=== PATIENT | female | born 1960 | race Caucasian/White ===

== ENCOUNTER 2019-07-03 10:34 | Inpatient (IN) | payer MEDICARE, OTHER ==
[~2019-07-03] VITALS: Ht 157.5 cm; Wt 59.0 kg
[~2019-07-03 10:34] MED LIST: ALPR1 PO; CYCL10 PO; HYDACE5325 PO; HYDR1TAB94 PO; Lyrica25 MG PO; META800 PO; NAPR500 PO; OXYACE5T PO
[2019-07-03] MEDS ORDERED: ALPRAZOLAM0.5 M1 PO (11:12)
[2019-07-03] MEDS ORDERED: DICL75ER PO (11:13)
[2019-07-03] MEDS ORDERED: PREGABALIN50 MG PO (11:13)
[2019-07-03] MEDS ORDERED: Ventolin/Prove6.7 GM INH (11:13)
[2019-07-03] MEDS ORDERED: Carbidopa-Levo1 EAC1 PO (11:13)
[2019-07-03] MEDS ORDERED: METOPROLOL TART25 MG PO (11:14)
[2019-07-03 13:38] LABS: BASOPHILS ABSOLUTE AUTO 0.02 K/mm3 (0.00-0.23); BASOPHILS PERCENT AUTO 0 % (0-2); EOSINOPHILS ABSOLUTE AUTO 0.07 K/mm3 (0.00-0.68); EOSINOPHILS PERCENT AUTO 1 % (0-6); Hematocrit 40.4 % (33.0-51.0); Hemoglobin 12.6 g/dL (11.5-16.0); IMMATURE GRAN ABSOLUTE AUTO 0.02 K/mm3 (0.00-0.10); IMMATURE GRAN PERCENT AUTO 0 % (0-1); LYMPHOCYTES ABSOLUTE AUTO 2.45 K/mm3 (0.84-5.20); LYMPHOCYTES PERCENT AUTO 25 % (21-46); MONOCYTES ABSOLUTE AUTO 0.88 K/mm3 (0.16-1.47); MONOCYTES PERCENT AUTO 9 % (4-13); Mean Corpuscular HGB 26.9 pg (26.0-34.0); Mean Corpuscular HGB Conc 31.2 g/dL (31.5-36.5); Mean Corpuscular Volume 86 fL (80-100); Mean Platelet Volume 10.2 fL (9.1-12.4); NEUTROPHILS ABSOLUTE AUTO 6.48 K/mm3 (1.96-9.15); NEUTROPHILS PERCENT AUTO 65 % (41-73); Platelet Count 221 K/mm3 (150-400); RDW Standard Deviation 47.4 fL (35.1-46.3); Red Blood Cell Count 4.69 M/mm3 (3.80-5.20); White Blood Cell Count 9.92 K/mm3 (4.00-11.30)
[2019-07-03 14:02] LABS: Alanine Aminotransfer (ALT/SGP 73 U/L (12-78); Albumin, Blood 3.4 g/dL (3.4-5.0); Albumin/Globulin Ratio 0.9 (0.8-1.8); Alk Phos 75 U/L (50-136); Anion Gap 3 mmol/L (6-16); Bilirubin, Total 0.3 mg/dL (0.1-1.0); Blood Urea Nitrogen 16 mg/dL (8-24); Bun/Creatinine Ratio 29.7 (12.0-20.0); CO2, Blood 30 mmol/L (21-32); Calcium, Blood 9.1 mg/dL (8.5-10.1); Chloride, Blood 103 mmol/L (98-108); Creatinine, Blood 0.54 mg/dL (0.40-1.00); Globulin, Blood 3.8 g/dL (2.2-4.0); Glomerular Filtration Rate >60 (60-); Glucose, Blood 115 mg/dL (70-99); Potassium, Blood 4.2 mmol/L (3.5-5.5); Sodium, Blood 136 mmol/L (136-145); Total Protein, Blood 7.2 g/dL (6.4-8.2)
[2019-07-03 14:38] LABS: Aspartate Aminotrans (AST/SGOT 1346 U/L (12-37)
[2019-07-03 16:47] LABS: Alanine Aminotransfer (ALT/SGP 92 U/L (12-78); Albumin, Blood 3.4 g/dL (3.4-5.0); Albumin/Globulin Ratio 0.9 (0.8-1.8); Alk Phos 75 U/L (50-136); Aspartate Aminotrans (AST/SGOT 1421 U/L (12-37); Bilirubin, Direct <0.1 mg/dL (0.0-0.3); Bilirubin, Indirect Unable to Calculate mg/dL (0.1-0.7); Bilirubin, Total 0.3 mg/dL (0.1-1.0); Globulin, Blood 3.9 g/dL (2.2-4.0); Total Protein, Blood 7.3 g/dL (6.4-8.2)
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
[2019-07-04 04:53] LABS: Anion Gap 2 mmol/L (6-16); Blood Urea Nitrogen 9 mg/dL (8-24); Bun/Creatinine Ratio 16.6 (12.0-20.0); CO2, Blood 31 mmol/L (21-32); Chloride, Blood 110 mmol/L (98-108); Creatinine, Blood 0.54 mg/dL (0.40-1.00); Glomerular Filtration Rate >60 (60-); Glucose, Blood 95 mg/dL (70-99); Potassium, Blood 3.8 mmol/L (3.5-5.5); Sodium, Blood 143 mmol/L (136-145)
[2019-07-04 04:54] LABS: Alanine Aminotransfer (ALT/SGP 118 U/L (12-78); Albumin, Blood 2.8 g/dL (3.4-5.0); Albumin/Globulin Ratio 0.8 (0.8-1.8); Alk Phos 59 U/L (50-136); Bilirubin, Total 0.5 mg/dL (0.1-1.0); Calcium, Blood 8.3 mg/dL (8.5-10.1); Globulin, Blood 3.3 g/dL (2.2-4.0); Total Protein, Blood 6.1 g/dL (6.4-8.2)
[2019-07-04 06:17] LABS: Aspartate Aminotrans (AST/SGOT 1044 U/L (12-37); CPK Creatine Kinase >20000 U/L (26-193)
--- NOTE | 2019-07-04 09:05 | NUR ---
MEAT PROCESSOR SUMMARY Patient tearful and very restless overnight. constantly moving all over the bed, and terrified she would need surgery in the morning. left lower extremity neuro checks all WNL. Patient able to lift leg, move toes and although dorsal lateral sensation to foot was slightly less at beginning of shift, sensation to entire left lower extremity was intact, 2+ dorsalis and 1+ post tib pulse on warm left foot. Swelling reduced significantly overnight. At end of shift, Patient got oob to use commode and fell onto her right knee. No pain or injury noted. VSS. Bed alarm in place, door open and yellow gown placed on patient so that staff would be aware of her fall risk status. Patient re-educated as to using the call light, and calling early for staff to assist her to bathroom.
--- NOTE | 2019-07-04 12:09 | NUR ---
Patient is lying in bed and alert. Patient is very tearful and talks about not being very hopeful. Patient then tells me about her personal struggles, the overwhelming responsibilities she has and her family unit complications. I listen empathically, hear confession, explore sources of dignity and meaning, explore rastafarian beliefs, encourage self-care and provide emotional support, pastoral rehabilitation services counselor and prayer. Patient responds well and displays evidence of improved hope. I will continue to remain available to patient and family.
[2019-07-04 14:01] LABS: CO2, Blood 28 mmol/L (21-32); CPK Creatine Kinase >20000 U/L (26-193)
--- NOTE | 2019-07-04 18:17 | NUR ---
SHIFT SUMMARY PT AXO THOUGH FORGETFUL AND IMPULSIVE. VSS. PT UP TO VOID FREQUENTLY, SETTING BED ALARM OFF FREQUENTLY DESPITE FREQUENT ROUNDING. DR ROD CONSULTED, SEE NOTE. PT REQUESTING PAIN MEDICATION FREQUENTLY. MEDICATED PER EMAR THOUGH PT APPEARS COMFORTABLE WHEN RESTING. DR LUKE CONSULTED, SEE NOTE. WHEN ASSESSING FOR COMPARTMENT SYNDROME, PT SWELLING IMPROVING PER PT REPORT AND NURSE ASSESSMENT, PT ABLE TO STRETCH AND FLEX TOES MINIMALLY WITHOUT PAIN. PT REPORTS SOME NUMBNESS ON MEDIAL ASPECT OF FOOT BUT CAN FEEL TOES. PULSES STRONG. PT'S SIGNIFICANT OTHER HAS BEEN ASKING NURSE ON MULTIPLE OCCASIONS TO "JUST KNOCK HER OUT." THIS NURSE EDUCATED HIM THAT PATIENT CAN BE MEDICATED FOR PAIN AND ANXIETY BUT THIS NURSE CANNOT "SEDATE" PATIENT.
--- NOTE | 2019-07-04 23:41 | NUR ---
3034 RECIEVED REPORT FROM GEO GONZALES. ARRIVED TO ROOM 348 @ 2335 VIA WHEELCHAIR. APPEARS ALERT AND ABLE TO MAKE NEEDS KNOWN. RECIEVED IN REPORT THAT PATIENT IS VERY IMPULSIVE AND FORGETFUL. PULLED OUT IV AND WILL REPLACE. BED IN LOWEST POSITION; ALARM ON. CALL LIGHT WITHIN REACH. WCTM.
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
[2019-07-05 04:48] LABS: Hematocrit 36.4 % (33.0-51.0); Hemoglobin 11.8 g/dL (11.5-16.0)
[2019-07-05 05:09] LABS: HBSAG SCREEN Negative (Negative); HEP A AB, IGM Negative (Negative); HEP B CORE AB, IGM Negative (Negative); HEP C VIRUS AB >11.0 (0.0-0.9)
[2019-07-05 05:15] LABS: Magnesium, Blood 1.8 mg/dL (1.6-2.4)
--- NOTE | 2019-07-05 05:28 | NUR ---
SHIFT SUMMARY A/O X3, ABLE TO MAKE NEEDS KNOWN; HOWEVER, FORGETFUL OF LIMITATIONS. COOPERATIVE WITH CARE; ALTHOUGH, LAUGHS THAT SHE NEEDS TO USE A WALKER. GAIT IS VERY UNSTEADY SHE HOPS ON HER GOOD LEG AND EXTREMELY WOBBLY. APPEARED TO REST MUCH OF THE TIME SINCE THE MOVE. VSS/AFEBRILE. NEW IV PLACED TO LFA, INFUSING NS @ 75 ML/HR WITHOUT COMPLICATIONS. BED IN LOWEST POSITION; ALARM ON. CALL LIGHT WITHIN REACH. WCTM. REPORT TO ONCOMING RN.
[2019-07-05 05:38] LABS: Alanine Aminotransfer (ALT/SGP 66 U/L (12-78); Albumin, Blood 2.6 g/dL (3.4-5.0); Albumin/Globulin Ratio 0.8 (0.8-1.8); Alk Phos 52 U/L (50-136); Anion Gap 4 mmol/L (6-16); Aspartate Aminotrans (AST/SGOT 759 U/L (12-37); Bilirubin, Total 0.3 mg/dL (0.1-1.0); Blood Urea Nitrogen 9 mg/dL (8-24); Bun/Creatinine Ratio 16.7 (12.0-20.0); CO2, Blood 27 mmol/L (21-32); Calcium, Blood 8.5 mg/dL (8.5-10.1); Chloride, Blood 112 mmol/L (98-108); Creatinine, Blood 0.54 mg/dL (0.40-1.00); Globulin, Blood 3.2 g/dL (2.2-4.0); Glomerular Filtration Rate >60 (60-); Glucose, Blood 95 mg/dL (70-99); Potassium, Blood 3.1 mmol/L (3.5-5.5); Sodium, Blood 143 mmol/L (136-145); Total Protein, Blood 5.8 g/dL (6.4-8.2)
[2019-07-05 06:07] LABS: CPK Creatine Kinase 16921 U/L (26-193)
--- NOTE | 2019-07-05 19:31 | NUR ---
PT. UP WITH ASSIST TO BR. TO PREVENT FALL, COMPLIANT BUT IS UP ABOUT EVERY 15 MINUTES. NO NOTEABLE CHANGES.
--- NOTE | 2019-07-06 04:46 | NUR ---
SHIFT SUMMARY A/O, ABLE TO MAKE NEEDS KNOWN. COOPERATIVE WITH CARE. CALLS AND ANSWERS QUESTIONS APPROPRIATELY. C/O PAIN/DISCOMFORT TO LLE/THIGH; RATED 8-9/10, MEDICATED PER EMAR. STATED ADEQUATE RELIEF AFTER ADMINISTRATION. VSS. APPEARED TO REST SOME OF SHIFT. IV PATENT AND INFUSING NS @ 75 ML/HR WITHOUT COMPLICATION. VERY EAGER TO GO HOME. HOPS ON R FOOT WITH TOE TOUCH ON L SIDE USING FWW; APPEARS TO BE STEADY WITH THIS. NO ACUTE CHANGES NOTED OVERNIGHT. BED IN LOWEST POSITION; ALARM ON. CALL LIGHT AND BELONGINGS WITHIN REACH. WCTM.
[2019-07-06 05:46] LABS: Hematocrit 37.6 % (33.0-51.0); Hemoglobin 11.8 g/dL (11.5-16.0)
[2019-07-06 06:00] LABS: Albumin, Blood 2.9 g/dL (3.4-5.0); Anion Gap 4 mmol/L (6-16); Blood Urea Nitrogen 11 mg/dL (8-24); Bun/Creatinine Ratio 20.5 (12.0-20.0); CO2, Blood 26 mmol/L (21-32); Calcium, Blood 8.6 mg/dL (8.5-10.1); Chloride, Blood 111 mmol/L (98-108); Creatinine, Blood 0.54 mg/dL (0.40-1.00); Glomerular Filtration Rate >60 (60-); Glucose, Blood 92 mg/dL (70-99); Magnesium, Blood 1.6 mg/dL (1.6-2.4); Phosphorus, Blood 3.3 mg/dL (2.5-4.9); Potassium, Blood 3.6 mmol/L (3.5-5.5); Sodium, Blood 141 mmol/L (136-145)
--- NOTE | 2019-07-06 08:00 | NUR ---
PT PLEASANT ANXIOUS. STATES PAIN IN L LEG AT 10/10. OKAY AT 5/10. MED PER EMAR. L FOOT SWOLLEN, 16.5 AT KNEE 16 INCHES AT CALF. +2 EDEMA. ENCOURAGED TO KEEP ON PILLOWS. H/R REG, NO MURMER NOTED. NO TELE. LUNGS SOME EXP WHEEZY T/O. ON R/A. BT X4 LAST BM TODAY PER PT. VOIDS BATHROOM 1 ASST FWW. BED IN LOW POSITION, CALL LITE IN REACH, CALLS APPROP
--- NOTE | 2019-07-06 13:48 | NUR ---
[id number] LEFT LOW EXT. CALF MEASURES 16 INCHES. KNEE MEASURES 16.5 INCHES, WARM, PINK, DRY. PT STATES FEELING TO TOES. IS TENDER TO TOUCH. CAP REFILL <3 SECONDS. PT STATES IMPROVEMENT NOTED.
--- NOTE | 2019-07-06 15:52 | NUR ---
ENCOURAGED PT TO PUMP PEDAL ONCE OR TWICE EVERY COMMERCIAL OR HALF HOUR. LEG SWOLLEN AT 15.5 INCHES AT CALF NOW AND 16.5 INCHES AT KNEE. SLIGHT IMPROVEMENT ON CALF. REMAINS KEEPING LEG ON PILLOWS. BED IN LOW POSITION, CALL LITE IN REACH, CALLS APPROP.
--- NOTE | 2019-07-06 17:57 | NUR ---
PT PLEASANT BUT WITH HIGH ANX. ALL DAY. IMPROVED BY NOON. X- IN ROOM SEVERAL TIMES TODAY. SHE HAD CALLS TO PARENTS WHICH APPEAR TO ESCALATE ANX. PAIN MANAGED WITH AVAIL MEDS. KEEPING ON ANX MEDS PER EMAR. NO OTHER CONCERNS AT THIS TIME. BED IN LOW POSITION,C ALL LITE IN REACH. CALLS APPROP
--- NOTE | 2019-07-06 22:20 | NUR ---
BEGINNING SHIFT SUMMARY ASSUMED CARE OF PT AT 1900. PT IS A/O X4, DENIES N/T IN EXTREMITIES, PT STATES SHE GETS RESTLESS WHEN SHE DOESNT GET HER CARVADOPA/LEVADOPA, PT IS ALSO ANXIOUS AND TALKS RAPIDLY WITH LITTLE PAUSES. L LEG IS SWOLLEN AND NON-PITTING, MEASURING 14IN AROUND, LESS THAN DAYSHIFT. PT STAES SHE IS STARTING TO FEEL HER TOES MORE AND THEY ARE PAINFUL TO TOUCH NOW THAT THE SWELING IS DOWN. PT IS TOE TOUCH ON HER L LEG WITH TRANFER, 1P SBA WITH FWW TO BATHROOM. URINE CLEAR AND YELLOW. WHEEZES IN HER L LUNG, PT IS CURRENT SMOKER BUT STATES SHE WILL QUIT AAFTER SHE GETS HOME, DENIES SOB. HEART SOUNDS REGULAR, DENIES CP, PERIPHERAL PULSES STRONG. CALL LIGHT IN REACH, BED IN LOWEST POSTION, WILL CONTINUE TO MONITOR.
--- NOTE | 2019-07-07 04:36 | NUR ---
END SHIFT SUMMARY NO ACUTE CHANGES NOTED T/O THE NIGHT. PT DID NOT SLEEP MUCH DURING THE NIGHT. PT C/O PAIN IN HER LEG. LEG DIAMETER IS STILL 14IN, MEDICATED PER EMAR AND ICE PAIN APPLIED. PT STATES SHE IS GETTING MORE FEELING IN HER FOOT AND SOMETIMES IT TINGLES AFTER SHE WALKS ON IT. 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 CALL LIGHT IN REACH, BED IN LOWEST POSTION, WILL CONTINUE TO MONITOR UNTIL DAYSHIFT NURSE ARRIVES.
[2019-07-07 05:17] LABS: Hematocrit 41.4 % (33.0-51.0); Hemoglobin 13.1 g/dL (11.5-16.0)
[2019-07-07 05:37] LABS: Albumin, Blood 3.1 g/dL (3.4-5.0); Anion Gap 8 mmol/L (6-16); Blood Urea Nitrogen 9 mg/dL (8-24); Bun/Creatinine Ratio 14.4 (12.0-20.0); CO2, Blood 27 mmol/L (21-32); Calcium, Blood 8.7 mg/dL (8.5-10.1); Chloride, Blood 111 mmol/L (98-108); Creatinine, Blood 0.62 mg/dL (0.40-1.00); Glomerular Filtration Rate >60 (60-); Glucose, Blood 123 mg/dL (70-99); Potassium, Blood 3.2 mmol/L (3.5-5.5); Sodium, Blood 146 mmol/L (136-145)
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
--- NOTE | 2019-07-07 18:23 | NUR ---
PT QUITE PLEASANT TODAY. PAIN MANAGED WITH AVAIL MEDS. XANAX FOR ANX. WORKING ADEQUATELY PER PT. XHUSBAND IN TO VISIT TODAY. PT ABLE TO WALK TO WINDOW AND BACK TO DOORS AND BACK TO ROOM. STATES TO ME THAT MADE TIRED, BUT WANTS TO BE IMPROVING. SO WILLING TO WORK AT IT. NO OTHER CONCERNS AT THIS TIME. BED IN LOW POSITION, CALL LITE IN REACH, CALLS APPROP
[2019-07-08 05:57] LABS: Hematocrit 40.1 % (33.0-51.0); Hemoglobin 12.8 g/dL (11.5-16.0)
--- NOTE | 2019-07-08 06:33 | NUR ---
SHIFT SUMMARY PT IS A 58 Y/O FEMALE, TRANSFERED FROM [address] [place] [address] AT 1941. SHE IS A&O X 3, AND A 1PA OUT OF BED. PT COMPLAINED OF LLE AND FOOT PAIN, FOR WHICH SHE WAS MEDICATED TWICE WITH PRN OXYCODONE. SHE WAS ALSO MEDICATED AT FOR ANXIETY. NO COMPLAINTS OF ACUTE SOB OR NAUSEA. VITAL SIGNS STABLE. NO ACUTE CHANGES IN PT CONDITION NOTED SINCE TRANSFER. WILL CONTINUE TO MONITOR AND TREAT PER EMAR UNTIL HAND OFF TO DAY SHIFT RN.
[2019-07-08 06:36] LABS: Albumin, Blood 2.9 g/dL (3.4-5.0); Anion Gap 5 mmol/L (6-16); Blood Urea Nitrogen 12 mg/dL (8-24); CO2, Blood 29 mmol/L (21-32); Calcium, Blood 8.7 mg/dL (8.5-10.1); Chloride, Blood 110 mmol/L (98-108); Creatinine, Blood 0.67 mg/dL (0.40-1.00); Glomerular Filtration Rate >60 (60-); Glucose, Blood 96 mg/dL (70-99); Phosphorus, Blood 3.8 mg/dL (2.5-4.9); Potassium, Blood 3.5 mmol/L (3.5-5.5); Sodium, Blood 144 mmol/L (136-145)
--- NOTE | 2019-07-08 17:42 | NUR ---
SHIFT SUMMARY PATIENT MEDICATED X2 FOR PAIN THIS SHIFT. DENEIS NAUSEA AND SHORTNESS OF BREATH. PATIENT UP SBA W/FWW TO BATHROOM. PATIENT UP IN CHAIR FOR MEALS. DISCHARGE ANTICIPATED FOR TOMORROW. PATIENT IS ANXIOUS ABOUT RETURNING HOME AFTER FALLING AT HOME. CALL LIGHT IN REACH.
[2019-07-09 05:27] LABS: Hematocrit 40.6 % (33.0-51.0); Hemoglobin 12.7 g/dL (11.5-16.0)
[2019-07-09 05:56] LABS: Magnesium, Blood 2.1 mg/dL (1.6-2.4)
[2019-07-09 05:59] LABS: Albumin, Blood 2.9 g/dL (3.4-5.0); Anion Gap 7 mmol/L (6-16); Blood Urea Nitrogen 14 mg/dL (8-24); Bun/Creatinine Ratio 21.8 (12.0-20.0); CO2, Blood 27 mmol/L (21-32); Calcium, Blood 8.7 mg/dL (8.5-10.1); Chloride, Blood 109 mmol/L (98-108); Creatinine, Blood 0.64 mg/dL (0.40-1.00); Glomerular Filtration Rate >60 (60-); Glucose, Blood 92 mg/dL (70-99); Phosphorus, Blood 4.1 mg/dL (2.5-4.9); Potassium, Blood 3.7 mmol/L (3.5-5.5); Sodium, Blood 143 mmol/L (136-145)
--- NOTE | 2019-07-09 06:41 | NUR ---
SHIFT SUMMARY PT IS A 58 Y/O FEMALE, ADMITTED FOR [facility] AFTER A FALL AT HOME. PT IS A&O X 3, AND A SBA UP. SHE WAS MEDICATED ONCE FOR PAIN AND ANXIETY WIHT PRN OXYCODONE AND XANAX. NO COMPLAINTS OF NAUSEA OR SOB. VITAL SIGNS STABLE. PT SLEPT WELL DURING THE NIGHT. NO ACUTE CHANGES IN PT CONDITION NOTED. WILL CONTINUE TO MONITOR AND TREAT PER EMAR UNTIL HAND OFF TO DAY SHIFT RN.
[2019-07-09] MEDS ORDERED: NICO21TP TOP (11:34)
[2019-07-09] MEDS ORDERED: OXYC5 PO (11:36)
[2019-07-09] MEDS ORDERED: SPIR25 (11:36)
[2019-07-09] MEDS ORDERED: Senna Plus Tab1 EACH PO (11:42)
--- NOTE | 2019-07-09 15:26 | NUR ---
discharge note- PT WAS GIVEN VERBAL AND WRITTEN DISCHARGE INSTRUCTIONS AND ACKNOWLEDGED UNDERSTANDING OF THEM. MEDS FAXED TO [facility] PER PT REQUEST. HARD SCRIPT FOR WC PROVIDED TO PT ON DISCHARGE. PT SO IS RETURNING TO SALES [employer]ECUTIVE HARD COPY SCRIPT FOR OXYCODONE AT THIS TIME. IV DC'D PRIOR TO DISCHARGE. PT WAS MEDICATED FOR PAIN AND ANXIETY PRIOR TO DISCHARGE AND HAD NO S&S OF DISTRESS NOTED. PT WAS ESCORTED OUT VIA WC BY THE RN.
[2019-07-11 11:07] LABS: HEPATITIS C QUANTITATION HCV Not Detected IU/mL (.)
== END 2019-07-09 12:50 | disposition home health service (06) | DRG 964 ==
LOC: ER 10:34 → MEDS 16:11 → ENPENDDIS 07-09 10:42 → MEDS 07-09 12:50
PROVIDERS: Family Medicine; Internal Medicine Nephrology; Physician Assistant; ADMIT Internal Medicine
DX: S87.82XA Crushing injury of left lower leg, initial encounter (principal); E87.0 Hyperosmolality and hypernatremia; T79.6XXA Traumatic ischemia of muscle, initial encounter; E88.09 Other disorders of plasma-protein metabolism, not elsewhere classified; N18.2 Chronic kidney disease, stage 2 (mild); I12.9 Hypertensive chronic kidney disease with stage 1 through stage 4 chronic kidney disease, or unspecified chronic kidney disease; E87.6 Hypokalemia; G89.29 Other chronic pain; W10.9XXA Fall (on) (from) unspecified stairs and steps, initial encounter; Y92.9 Unspecified place or not applicable; F17.200 Nicotine dependence, unspecified, uncomplicated
CPT/HCPCS: 36415; 73562-LT; 73590; 73610; 80053; 80069; 80074; 80076; 82248; 82374; 82550; 83735; 84100; 85014; 85018; 85025; 87522; 93971; 94640; 94760; 96361; 96374; 96375; 97110; 97116; 97162; 97530; 99285-25; A9270; A9270-GY; J1170; J1644; J2060; J3475; J7030

== ENCOUNTER 2020-12-03 12:22 | Emergency (ER) | payer MEDICARE, OTHER ==
[~2020-12-03] VITALS: Ht 157.5 cm; Wt 70.8 kg
[~2020-12-03 12:22] MED LIST changes: +ALPRAZOLAM0.5 M1 PO; +Carbidopa-Levo1 EAC1 PO; +DICL75ER PO; +METOPROLOL TART25 MG PO; +NICO21TP TOP; +OXYC5 PO; +PREGABALIN50 MG PO; +SPIR25; +Senna Plus Tab1 EACH PO; +Ventolin/Prove6.7 GM INH
== END 2020-12-03 14:35 | disposition home or self-care (01) ==
LOC: ER 12:22
DX: S93.602A Unspecified sprain of left foot, initial encounter (principal); I10 Essential (primary) hypertension; F17.200 Nicotine dependence, unspecified, uncomplicated; Z79.899 Other long term (current) drug therapy; W22.03XA Walked into furniture, initial encounter
CPT/HCPCS: 73610; 73630; 99283-25

== ENCOUNTER 2021-12-26 21:41 | Inpatient (IN) | payer MEDICARE ==
[~2021-12-26] VITALS: Ht 157.5 cm; Wt 70.0 kg
[~2021-12-26 21:41] MED LIST changes: +CARBIDOPA-LEVO1 EA19 PO; -Carbidopa-Levo1 EAC1 PO
[2021-12-26 22:43] LABS: BASOPHILS ABSOLUTE AUTO 0.03 K/mm3 (0.00-0.23); BASOPHILS PERCENT AUTO 0 % (0-2); EOSINOPHILS ABSOLUTE AUTO 0.08 K/mm3 (0.00-0.68); EOSINOPHILS PERCENT AUTO 1 % (0-6); Hematocrit 41.2 % (33.0-51.0); Hemoglobin 12.9 g/dL (11.5-16.0); IMMATURE GRAN ABSOLUTE AUTO 0.05 K/mm3 (0.00-0.10); IMMATURE GRAN PERCENT AUTO 0 % (0-1); LYMPHOCYTES PERCENT AUTO 11 % (21-46); MONOCYTES ABSOLUTE AUTO 1.05 K/mm3 (0.16-1.47); MONOCYTES PERCENT AUTO 8 % (4-13); Mean Corpuscular HGB 27.3 pg (26.0-34.0); Mean Corpuscular HGB Conc 31.3 g/dL (31.5-36.5); Mean Corpuscular Volume 87 fL (80-100); Mean Platelet Volume 10.3 fL (9.1-12.4); NEUTROPHILS ABSOLUTE AUTO 10.17 K/mm3 (1.96-9.15); NEUTROPHILS PERCENT AUTO 80 % (41-73); Platelet Count 212 K/mm3 (150-400); RDW Coefficient Variation 15.2 % (11.7-14.2); RDW Standard Deviation 48.9 fL (35.1-46.3); Red Blood Cell Count 4.73 M/mm3 (3.80-5.20); White Blood Cell Count 12.78 K/mm3 (4.00-11.30)
[2021-12-26 23:03] LABS: Magnesium, Blood 2.2 mg/dL (1.6-2.4); Salicylate 2.1 mg/dL (2.8-20.0)
[2021-12-26 23:11] LABS: Alanine Aminotransfer (ALT/SGP 17 U/L (12-78); Albumin, Blood 3.9 g/dL (3.4-5.0); Albumin/Globulin Ratio 1.1 (0.8-1.8); Alk Phos 77 U/L (50-136); Anion Gap 3 mmol/L (6-16); Aspartate Aminotrans (AST/SGOT 31 U/L (12-37); Bilirubin, Total 0.2 mg/dL (0.1-1.0); Blood Urea Nitrogen 10 mg/dL (8-24); Bun/Creatinine Ratio 12.3 (12.0-20.0); CO2, Blood 34 mmol/L (21-32); Calcium, Blood 8.5 mg/dL (8.5-10.1); Chloride, Blood 107 mmol/L (98-108); Creatinine, Blood 0.81 mg/dL (0.40-1.00); Ethanol (Alcohol), Blood, Med <3 mg/dL; Globulin, Blood 3.5 g/dL (2.2-4.0); Glomerular Filtration Rate 82 (60-); Glucose, Blood 66 mg/dL (70-99); Potassium, Blood 4.4 mmol/L (3.5-5.5); Sodium, Blood 144 mmol/L (136-145); Total Protein, Blood 7.4 g/dL (6.4-8.2)
[2021-12-26 23:12] LABS: Acetaminophen, Random <2.0 ug/mL (10.0-30.0)
[2021-12-27 03:15] LABS: Source, Urine Straight Cath
[2021-12-27 03:24] LABS: Bilirubin, Urine Neg (Neg); Blood, Urine 1+ (Neg); Glucose Qualitative, Urine Neg (Neg); Ketones, Urine 1+ (Neg); Leukocyte Esterase, Urine 1+ (Neg); Nitrite, Urine Neg (Neg); Protein, Urine 2+ (Neg); Specific Gravity, Urine 1.025 (1.003-1.022); Urobilinogen, Urine NORM (Normal)
[2021-12-27 03:38] LABS: Appearance, Urine Clear (Clear); Color, Urine Yellow (P-Yellow)
[2021-12-27 03:40] LABS: Amorphous Light (0-Heavy); Bacteria Rare /hpf; Mucus Mod (0-Heavy); Red Blood Cells, Urine 0-2 /hpf (0-2); Squamous Epithelial Cells Rare /hpf (Few); White Blood Cells, Urine 0-2 /hpf (0-5)
[2021-12-27 03:53] LABS: U Amphetamine Screen Not Detected; U Barbituate Screen Not Detected; U Benzodiazapine Screen DETECTED; U Buprenorphine Screen Not Detected; U Cannabinoids Screen DETECTED; U Cocaine Screen Not Detected; U Methadone Screen DETECTED; U Methamphetamine Screen Not Detected; U Opiates Screen DETECTED; U Oxycodone Screen Not Detected; U Phencyclidine Screen Not Detected; U Propoxyphene Screen Not Detected
--- NOTE | 2021-12-27 07:18 | NUR ---
SHIFT SUMMARY PT IS ALERT AT TIMES. SHE HAS BEEN DROWSY T/O THE NIGHT. BP HAS BEEN SOFT AND HR HAS BEEN IN 60-80'S. SHE DENIES CHEST PAIN/PRESSURE. PT WAS NARCANED DURING THE SHIFT FOR LOW RESP OF 5. MINUTES AFTER PT WOKE UP AND STATED THAT SHE WANTED TO GO HOME SEVERAL TIMES. SHE WAS ADVISED THAT SHE WAS HERE FOR CARE AND SHE WAS SITTING UP IN BED CHATTING WITH THIS NURSE. SHE IS RUNNING NS AT 150. SHE WAS ABLE TO GET UP SBA ON THE BSC. CALL LIGHT IS WITHIN REACH. BED ALARM ACTIVE.
--- NOTE | 2021-12-27 07:25 | NUR ---
UPON INITAL ASSESSMENT, PT'S RR NOTED TO BE 5-6 WITH SPO2 94-96% ON 3L O2 VIA NC. 0.2MG IV OF NARCAN GIVEN VIA EMAR. PT ALERT AND ABLE TO REPSOND TO STAFF AND FOLLOW DIRECTIONS APPROPRIATELY. CHARGE NURSE NOTIFIED AND WILL CONTINUE TO MONITOR CLOSELY
--- NOTE | 2021-12-27 07:46 | NUR ---
PT'S RR INCREASED TO 9-10, PT CONTINUES TO MAINTAIN SP02 >94 ON 3L O2 VIA NC. PT REPORTS DROWSINESS, BUT IS ABLE TO FOLLOW DIRECTIONS AND RESPOND APPROPRIATELY TO STAFF. PT REPORT NO SOB. WILL CONTINUE TO MONITOR
--- NOTE | 2021-12-27 09:22 | NUR ---
SPOKE WITH DR. LIRIANO ABOUT PT'S REPORTS OF BACK PAIN AND HEADACHE. DR. LIRIANO ORDERED ACETAMINOPHEN 650 MG PO FIRST DOSE NOW AND Q4 PRN FOR PAIN. WILL CONTINUE TO MONITOR PAIN MANAGMENT
--- NOTE | 2021-12-27 10:55 | NUR ---
EXPIRATORY WHEEZES NOTED T/O ALL LUNG WATSON. PT MAINTAINS SPO2 >94% ON 2L O2 VIA NC. RT NOTIFIED AND PT UNDERGOING BREATHING TREATMENT AT THE TIME OF THIS NOTE. WILL REASSESS AFTER TREATMENT AND CONTINUE TO MONITOR PT
--- NOTE | 2021-12-27 12:42 | NUR ---
AFTER SPEAKING WITH DR. LIRIANO WOULD, SHE WOULD LIKE PT TO STAY ANOTHER NIGHT FOR RR/SPO2 MONITORING. PT EDUCATED ABOUT THE PLAN OF CARE AND NEED FOR FURTHER MONITORING. PT ANXIOUS AND EAGER TO GO HOME. THERAPEUTIC COMMUNICATION TECHIQUES USED TO HELP CALM THE PATIENT. PT RESPONDED WELL AND IS NOW RELAXING AND EATING LUNCH IN BED. SP02 CONTINUES TO BE >94% ON 3L NC. WILL CONITINUE TO MONITOR CLOSELY
--- NOTE | 2021-12-27 14:58 | NUR ---
PT BECAME MORE TIRED/SLUGGISH WITH RESPIRATORY RATE OF 9. HR LOW 50'S. ANOTHER DOSE OF 0.2MG OF NARCAN GIVEN ORDERED VIA EMAR. INFORMED OF PT'S CHANGE IN MENTATION/VITAL SIGNS. DR LIRIANO ORDERED 1L OF NS TO BE ADMINISTERED OVER 3 HOURS. WILL CONTINUE TO MONITOR PT'S MENTATION AND V/S
--- NOTE | 2021-12-27 16:00 | NUR ---
Discussed vs and loc with Dr Houston, new orders to give another dose of narcan and continuous fluids orders. Will continue to monitor.
--- NOTE | 2021-12-27 16:20 | NUR ---
PT CONTINUES TO BE SLUGGISH/SLEEPY, RR STAYING 7-8 WITH SPO2 >95 ON 2L O2 VIA NC. HR REMAINS IN THE 50'S WITH SOFT BP'S. ANOTHER DOSE OF NARCAN WAS GIVEN WELL THE PT WAS STARTED ON MIDODRINE AFTER SPEAKING WITH DR. LIRIANO. NS RUNNING AT 333MLS/HR IN ATTEMPT TO INCREASE PT'S BP. WILL CONTINUE TO MONITOR
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
--- NOTE | 2021-12-27 19:50 | NUR ---
ASSUMED CARE OF PT, SHE IS ALERT AND ORIENTED AND WATCHING TV AT THIS TIME, C/O 9/10 GENERALIZED PAIN, STATES THAT SHE DOES HAVE CHRONIC PAIN AND SAYS THAT BASELINE PAIN SCALE IS 9/10 AT HOME. EDUCATION PROVIDED REGARDING IMPORTANCE OF ADEQUATE RESPIRATION FOR CELLULAR AEROBIC METABOLISM WELL RISKS, INCLUDING , OF DECREASED RESPIRATORY DRIVE, PT VERBALIZED UNDERSTANDING AT THIS TIME. PLAN OF CARE FOR THIS SHIFT IS DISCUSSED, UNDERSTANDING VERBALIZED. CURRENT RESP RATE IS LOW TEENS, SATS MAINTAINING WITH OXYGEN VIA NASAL CANNULA AT 2 L/MIN, PRESSURES CONTINUE SOFT HOWEVER IMPROVING OF THIS TIME, WILL CONT TO MONITOR.
--- NOTE | 2021-12-28 | NUR ---
PT DENIES CURRENT NEED TO VOID, STATES THAT SHE HAS NOT VOIDED SINCE THE END OF DAY SHIFT BUT THAT SHE WAS UP MULTIPLE TIMES THROUGHOUT THE DAY AND VOIDED EACH TIME. WILL CONT TO MONITOR.
--- NOTE | 2021-12-28 06:08 | NUR ---
PT AWAKE FREQUENTLY THIS SHIFT, RESP RATE HAS CONTINUED TEENS TO 20, SHE REPORTS HIGH ANXIETY EARLY IN THE SHIFT AND RESIDENT WAS NOTIFIED, ORDERS OBTAINED FOR HOME DOSE OF XANAX X 1, PT TOLERATED WELL, CONTINUES WITH FREQUENT QUESTIONS THROUGHOUT NOC WELL "I JUST WANT TO GO HOME" SHE IS NOTED IMPULSIVE THIS AM AND BED ALARM IS ARMED, PT HAS GOTTEN UP TO USE BSC AND TRIGGERED BED EXIT ALARM SEVERAL TIMES THIS AM. SHE HAS EXPRESSED FRUSTRATION WITH IV TUBING, TELEMETRY WIRES, SPO2 PROBE AND OXYGEN TUBING, FREQUENTLY STATES "I KNOW!" WHEN EDUCATION IS ATTEMPTED AND FOLLOWS WITH "I COULD DO THIS AT HOME BY MYSELF" FREQUENT REASSURANCE AND REEDUCATION IS PROVIDED THROUGHOUT SHIFT. AT 2009 PT WAS NOTED TO HAVE 2.31 SECOND PAUSE ON TELEMETRY, HOSPITALIST PHOTO MASK PATTERN GENERATOR WAS NOTIFIED.
--- NOTE | 2021-12-28 08:15 | NUR ---
PT APPEARED CONFUSED TO THE REASON OF HER CONTINUED ADMISSION. PT RE-INFORMED OF PLAN OF CARE AND EDUCATED TO THE NEED FOR FURTHER MONITORING DUE TO HER BRADYCARDIA AND SLOW RESPIRATORY RATES. PT MAINTAINING SPO2 >94 ON 2L O2 VIA NC. DOEST NOT REPORT SOB, OR DYSPNEA. WILL CONTINUE TO MONITOR PT
--- NOTE | 2021-12-28 09:15 | NUR ---
DR. LIRIANO CAME AND SPOKE PLAN OF CARE WITH THE PT. PT WAS ADAMENT ABOUT DISCHARGE YESTERDAYS WELL EALRY THIS AM. AFTER SPEAKING WITH DR. LIRIANO THE PATIENT STATED THEY WANTED TO STAY ONE MORE NIGHT FOR HR/RR/BP MONITORING. DR. LIRIANO INFORMED ME IF THE PT CHANGES HER MIND ABOUT HER ADMISSION THAT THE PT CAN GO AMA. WILL CONTINUE TO MONITOR PT CLOSELY
--- NOTE | 2021-12-28 10:20 | NUR ---
UPON ASULCATION OF THE PT'S LUNGS, WHEEZES WERE HEARD IN THE SEVERAL OF THE UPPER LOBES WELL INSPIRATORY CRACKLES IN THE BASES. RT NOTIFIED FOR BREATHING TREATMENT. DR. LIRIANO NOTIFED OF THE PT'S CHANGE IN CONDITION WHERE SHE ORDERED THE DC OF NS. NS DC'D AND WILL REASSESS PT'S LUNG FUNCTION
--- NOTE | 2021-12-28 18:24 | NUR ---
SHIFT SUMMARY PT IS A/Ox3, BUT CAN BE FORGETFUL OF TEACHINGS/DIRECTIONS PROVIDED BY STAFF. PT MOOD CHANGES RAPIDLY FROM ANXIOUS/CRYING TO THANKFUL AND COOPERATIVE. PT HAS MAINTAINED SPO2 >94 T/O THE SHIFT ON 2L O2 VIA NC. NO SOB/DYSPNEA NOTED AT REST, ONLY WHEN AMBULATING DOES THE PT BECOME SOB. PT'S HR STILL RANGES FROM LOW 50'S TO 90'S. POSSIBLE DC 12/29/21 UPON FURHTER EVALUTION BY DR. LIRIANO. PT IS WEAK ON HER FEET AND IS A SBA TO THE PT'S BLOOD PRESSURE INCREASED 100-110'S. PT CONTINUES TO BE ANXIOUS DESPITE ATTEMPTS AT THERAPUTIC COMMUNICATION/GUIDED IMAGERY ATTEMPTS. FRANKY
--- NOTE | 2021-12-29 05:29 | NUR ---
SHIFT SUMMARY NO ACUTE CHANGES THIS SHIFT. VSS. ALERT BUT CONFUSED AT TIMES. ORIENTED BUT WXING/WANING DEPENDING ON SITUATION, PRESENTS MANIC AT TIMES TO THIS RN. NO CARDIAC EVENTS THIS SHIFT. ON RA FOR MOST OF NIGHT BUT PT REQUESTING O2 AT TIMES. PT CONTINENT. PT TO BSC CONSTANTLY WITH CLEAR URINE, SMALL AMOUNTS. PT CONTINUES TO SET BED ALARM OFF BUT DOES OCCASIONALLY USE CALL LIGHT. OTHERWISE, PT RESTING IN ROOM IN BETWEEN COMMODE TRIPS.
--- NOTE | 2021-12-29 09:10 | NUR ---
DR. LIRIANO SPOKE THE PT ABOUT HER PLAN OF CARE AND POSSIBLE DC THIS AFTERNOON. PT RECEIVED A SINGLE DOSE OF LOPRESSER AND PREDINSONE FOR HR CONTROL AND TO HELP WITH PT'S EXPRIATORY WHEEZES HEARD UPON ASCULATION OF THE PT'S LUNGS. PT STATES SHE DOES NOT HAVE A RIDE HOME IF DC'D, BUT WOULD ATTEMPT TO CONTACT A FRIEND FOR A RIDE HOME. PT EXPRESSES UNDERSTANDING OF HER PLAN OF CARE AND AGREED TO PROCEED DR. LIRIANO RECOMMENDED
[2021-12-29] MEDS ORDERED: PRED20 PO (13:00)
--- NOTE | 2021-12-29 14:42 | NUR ---
DISCHARGE NOTE PT EXPRESSED UNDERSTANDING OF DISCHARGE PLAN WELL ALL DISCHARGE TEACHING PROVIDED. [facility] EDUCATED PT ON ZIOPATCH AND ALL TEACHING REQUIRED FOR ZIOPATCH FOLLOW-UP. PT EXPRESSED UNDERSTANDING OF NEED TO FOLLOW UP WITH PCP WELL ALL MEDICATION TEACHING PROVIDED.
== END 2021-12-29 14:22 | disposition home or self-care (01) | DRG 918 ==
LOC: ER 21:41 → PCU 21:42
PROVIDERS: Student in an Organized Health Care Education/Training Program; ADMIT Internal Medicine
DX: T40.3X1A Poisoning by methadone, accidental (unintentional), initial encounter (principal); G25.81 Restless legs syndrome; I10 Essential (primary) hypertension; F41.9 Anxiety disorder, unspecified; G89.29 Other chronic pain; F17.210 Nicotine dependence, cigarettes, uncomplicated; J44.9 Chronic obstructive pulmonary disease, unspecified; I49.5 Sick sinus syndrome; G62.9 Polyneuropathy, unspecified; M54.2 Cervicalgia; Z87.81 Personal history of (healed) traumatic fracture; Z98.890 Other specified postprocedural states; Z79.899 Other long term (current) drug therapy; X58.XXXA Exposure to other specified factors, initial encounter
CPT/HCPCS: 70450; 80053; 81001; 82947; 83735; 85025; 93005; 93010; 93246; 94640; 94664; 94760; 94762; 96374; 96376; 99285-25; 99407; A9270; G0378; G0480; J2310; J2765; J7030; J7512

== ENCOUNTER 2024-04-24 16:55 | Emergency (ER) | payer MEDICARE ==
[~2024-04-24] VITALS: Ht 157.5 cm; Wt 61.2 kg
[~2024-04-24 16:55] MED LIST changes: +PRED20 PO
[2024-04-24 17:13] VITALS: BP 112/59
[2024-04-24] MEDS ORDERED: Albuterol 2.5 MG/3 ML VIAL INH SCH (18:20)
[2024-04-24] MEDS ORDERED: PredniSONE 20 MG Tab PO ONE (18:20)
[2024-04-24] MEDS ORDERED: Azithromycin 250 MG Tab PO ONE (18:20)
[2024-04-24] MEDS ORDERED: PRED20 PO (20:04)
[2024-04-24] MEDS ORDERED: AZIT250 PO (20:04)
== END 2024-04-24 20:21 | disposition home or self-care (01) ==
LOC: ER 16:55
DX: J44.1 Chronic obstructive pulmonary disease with (acute) exacerbation (principal); I10 Essential (primary) hypertension; F17.200 Nicotine dependence, unspecified, uncomplicated; Z79.899 Other long term (current) drug therapy
CPT/HCPCS: 71046; 94644; 94664; 99284-25; A9270; J7512

== ENCOUNTER 2024-11-22 17:33 | Inpatient (IN) | payer MEDICARE ==
[2024-11-22] VITALS (9 sets, daily range): BP systolic 77–105; BP diastolic 34–86
[~2024-11-22] VITALS: Ht 152.4 cm; Wt 65.2 kg
[~2024-11-22 17:33] MED LIST changes: +AZIT250 PO
[2024-11-22] MEDS ORDERED: NS 1,000 ML IV ONE (17:40)
[2024-11-22] MEDS ORDERED: NS 1,000 ML IV SCH ×2 (17:45→19:05)
[2024-11-22 18:12] LABS: Source, Urine Fem Cath
[2024-11-22 18:17] LABS: Bilirubin, Urine Neg (Neg); Color, Urine Yellow (P-Yellow); Glucose Qualitative, Urine Neg (Neg); Ketones, Urine Neg (Neg); Leukocyte Esterase, Urine Neg (Neg); Protein, Urine 3+ (Neg); Specific Gravity, Urine 1.030 (1.003-1.022); Urobilinogen, Urine NORM (Normal)
[2024-11-22 18:40] LABS: U Benzodiazapine Screen DETECTED; U Cannabinoids Screen DETECTED; U Opiates Screen DETECTED
[2024-11-22 18:41] LABS: U Amphetamine Screen Not Detected; U Barbituate Screen Not Detected; U Buprenorphine Screen Not Detected; U Cocaine Screen Not Detected; U Methadone Screen DETECTED; U Methamphetamine Screen Not Detected; U Oxycodone Screen DETECTED; U Phencyclidine Screen Not Detected
[2024-11-22 19:54] LABS: BASOPHILS ABSOLUTE AUTO 0.08 K/mm3 (0.00-0.23); BASOPHILS PERCENT AUTO 0 % (0-2); EOSINOPHILS ABSOLUTE AUTO 0.02 K/mm3 (0.00-0.68); EOSINOPHILS PERCENT AUTO 0 % (0-6); Hematocrit 43.1 % (33.0-51.0); Hemoglobin 13.1 g/dL (11.5-16.0); IMMATURE GRAN ABSOLUTE AUTO 0.32 K/mm3 (0.00-0.10); IMMATURE GRAN PERCENT AUTO 1 % (0-1); LYMPHOCYTES ABSOLUTE AUTO 2.19 K/mm3 (0.84-5.20); LYMPHOCYTES PERCENT AUTO 8 % (21-46); MONOCYTES ABSOLUTE AUTO 1.16 K/mm3 (0.16-1.47); MONOCYTES PERCENT AUTO 4 % (4-13); Mean Corpuscular HGB Conc 30.4 g/dL (31.5-36.5); Mean Corpuscular Volume 95 fL (80-100); NEUTROPHILS ABSOLUTE AUTO 22.82 K/mm3 (1.96-9.15); NEUTROPHILS PERCENT AUTO 86 % (41-73); NRBC ABSOLUTE 0.03 K/mm3 (0.00-0.02); NRBC Auto 0.1 /100 WBC (0.0-0.2); Platelet Count 79 K/mm3 (150-400); RDW Coefficient Variation 13.2 % (11.7-14.2); RDW Standard Deviation 46.2 fL (35.1-46.3)
[2024-11-22 20:14] LABS: Ethanol (Alcohol), Blood, Med <3 mg/dL
[2024-11-22] MEDS ORDERED: Piperacillin/Tazobactam Sod 4.5 GM in NS 100 ML IV ONE (20:20)
[2024-11-22 20:23] LABS: Thyroid Stimulating Hormone 1.510 uIU/mL (0.360-4.800)
[2024-11-22 20:25] LABS: Alanine Aminotransfer (ALT/SGP 3730 U/L (12-78); Albumin, Blood 2.9 g/dL (3.4-5.0); Albumin/Globulin Ratio 1.2 (0.8-1.8); Anion Gap 19 mmol/L (3-11); Aspartate Aminotrans (AST/SGOT 9233 U/L (12-37); Bilirubin, Total 1.4 mg/dL (0.1-1.0); Blood Urea Nitrogen 29 mg/dL (8-24); CO2, Blood 21 mmol/L (21-32); Calcium, Blood 7.2 mg/dL (8.5-10.1); Chloride, Blood 98 mmol/L (98-108); Creatinine, Blood 2.25 mg/dL (0.40-1.00); Globulin, Blood 2.5 g/dL (2.2-4.0); Glucose, Blood 152 mg/dL (70-99); Potassium, Blood 5.1 mmol/L (3.5-5.5); Sodium, Blood 133 mmol/L (136-145); Total Protein, Blood 5.4 g/dL (6.4-8.2)
[2024-11-22] MEDS ORDERED: ALPRAZOLAM0.5 M1 PO (21:51)
[2024-11-22] MEDS ORDERED: Albuterol 2.5 MG/3 ML VIAL INH PRN (22:20)
[2024-11-22] MEDS ORDERED: Ipratropium/Albuterol SulF 2.5-0.5MG/3 ML Amp INH SCH ×2 (22:25→23:42)
[2024-11-22] MEDS ORDERED: Magnesium Sulf 2 GM/Water 50ML 50 ML IV ONE (23:35)
[2024-11-23] VITALS (78 sets, daily range): BP systolic 66–130; BP diastolic 25–95
--- NOTE | 2024-11-23 01:36 | NUR ---
ADMISSION TO ICU NOTE PT ARRIVED VIA GURNEY FROM ED WITH LEVO INFUSING AT 8 IN RIGHT FA IV AND LR BOLUSING WIDE OPEN INTO RIGHT HAND IV. PT IN MILD DISTRESS C/O COLD AND PAIN IN RIGHT HIP. PT ALERT AND ORIENTED BUT INTERMITTENTLY CONFUSED. FIRST MAP 71, SINUS RHYTHM 80'S. PT SAT 80'S ON RA, STARTED ON 2L NC. MODERATE TO SEVERE WHEEZING AUSCULTATED BILATERALLY. RT IN ROOM TO GIVE DUONEB, WHICH IS SCHEDULED Q 4HRS. PT C/O CRAMPING AB PAIN. RECENT H/O DIARRHEA, MELENA, STOOL SAMPLE COLLECTED SHORTLY AFTER ASSESSMENT. PUREWICK IN PLACE. CHARGE NURSE PLACED POWERGLIDE IN LEFT UPPER ARM. MAGNESIUM STARTED BY BREAK NURSE. BLOUS OF LR FINISHED DURING BREAK AND 1 LITER OF LR STARTED AT 100ML/HR. PT GAVE VERBAL PERMISSION TO PUT PHOTOS IN CHART.
[2024-11-23 02:47] LABS: Campylobacter Sp Not Detected (NOT DETECT); E. Coli O157 Not Detected (NOT DETECT); Enteroaggregative E. coli-EAEC Not Detected (NOT DETECT); Enteropathogenic E. coli-EPEC Not Detected (NOT DETECT); Enterotoxigenic E. coli-ETEC Not Detected (NOT DETECT); Salmonella Sp Not Detected (NOT DETECT); Shiga Toxin-prod E. coli-STEC Not Detected (NOT DETECT); Shigella/Enteroin E. coli-EIEC Not Detected (NOT DETECT); Vibrio Sp Not Detected (NOT DETECT)
[2024-11-23] MEDS ORDERED: Piperacillin/Tazobactam Sod 3.375 GM in NS 100 ML IV SCH ×2 (03:25→21:00)
[2024-11-23 05:21] LABS: BASOPHILS ABSOLUTE AUTO 0.08 K/mm3 (0.00-0.23); BASOPHILS PERCENT AUTO 0 % (0-2); EOSINOPHILS ABSOLUTE AUTO 0.00 K/mm3 (0.00-0.68); EOSINOPHILS PERCENT AUTO 0 % (0-6); Hematocrit 44.5 % (33.0-51.0); Hemoglobin 13.9 g/dL (11.5-16.0); IMMATURE GRAN ABSOLUTE AUTO 0.35 K/mm3 (0.00-0.10); IMMATURE GRAN PERCENT AUTO 1 % (0-1); LYMPHOCYTES ABSOLUTE AUTO 2.18 K/mm3 (0.84-5.20); LYMPHOCYTES PERCENT AUTO 7 % (21-46); MONOCYTES ABSOLUTE AUTO 0.98 K/mm3 (0.16-1.47); MONOCYTES PERCENT AUTO 3 % (4-13); Mean Corpuscular HGB Conc 31.2 g/dL (31.5-36.5); Mean Corpuscular Volume 92 fL (80-100); NEUTROPHILS ABSOLUTE AUTO 27.47 K/mm3 (1.96-9.15); NEUTROPHILS PERCENT AUTO 88 % (41-73); NRBC ABSOLUTE 0.03 K/mm3 (0.00-0.02); NRBC Auto 0.1 /100 WBC (0.0-0.2); Platelet Count 140 K/mm3 (150-400); RDW Coefficient Variation 13.3 % (11.7-14.2); RDW Standard Deviation 45.1 fL (35.1-46.3)
[2024-11-23 07:14] LABS: Alanine Aminotransfer (ALT/SGP 5349.0 U/L (12-78); Albumin, Blood 3.2 g/dL (3.4-5.0); Albumin/Globulin Ratio 1.3 (0.8-1.8); Anion Gap 13.0 mmol/L (3-11); Aspartate Aminotrans (AST/SGOT 19648.0 U/L (12-37); Bilirubin, Total 1.9 mg/dL (0.1-1.0); Blood Urea Nitrogen 33.0 mg/dL (8-24); CO2, Blood 24.0 mmol/L (21-32); Calcium, Blood 6.9 mg/dL (8.5-10.1); Chloride, Blood 103.0 mmol/L (98-108); Creatinine, Blood 2.53 mg/dL (0.40-1.00); Globulin, Blood 2.4 g/dL (2.2-4.0); Glucose, Blood 156.0 mg/dL (70-99); Potassium, Blood 4.7 mmol/L (3.5-5.5); Sodium, Blood 135.0 mmol/L (136-145); Total Protein, Blood 5.6 g/dL (6.4-8.2)
--- NOTE | 2024-11-23 07:25 | NUR ---
SHIFT SUMMARY PT LYING IN BED IN NO APPARENT DISTRESS. PT IS ALERT AND ORIENTED BUT CONFUSED ABOUT HER SITUATION BUT IS QUICKLY REORIENTABLE. AFEBRILE. PT C/O PAIN IN HIPS AND CRAMPING PAIN IN AB. OXYCODONE 5MG Q 4HR PRN ORDERED FOR THIS PAIN WITH MODERATE EFFECTIVENESS. PT IN SINUS RHYTHM 80'S AND 90'S WITH SOFT BP, ON 8 LEVOPHED UPON ARRIVAL AND TITRATED DOWN TO 6 BEFORE INCREASING TO 10 BE END OF SHIFT. PT ON 2-4L NC PRODUCING SAT > 92%. PT HAS CHRONIC COPD AND HAS DUONEBS SCHEDULED Q4. NO CHEST PAIN/PRESSURE DURING SHIFT. PT DID ADMIT TO STABLE SOB THROUGHOUT SHIFT. PT HAD 2 SMALL GELATINOUS, LIQUID RED/BLACK STOOL THAT WAS SENT FOR GI PANEL AND CAME BACK POSITIVE FOR C DIFF PRELIMINARILY. PT RECEIVING 2 ANTIBIOTICS WELL LR AT 100ML/HR. PT WAS CONTINENT OF BMS BUT HAD ZERO TO MINIMAL URINE OUTPUT DURING SHIFT. BEDSIDE SHIFT REPORT GIVEN TO ONCOMING RN.
[2024-11-23 07:56] LABS: Stool Occult Blood Guaiac 1 Pos (Neg)
[2024-11-23] MEDS ORDERED: NS 500 ML IV ONE (08:15)
[2024-11-23 08:34] LABS: Prothrombin Time Results 20.4 Sec (9.7-11.5)
[2024-11-23] MEDS ORDERED: Heparin Sodium,Porcine 5,000 UNIT/0.5 ML SDV SC SCH (09:00)
[2024-11-23] MEDS ORDERED: Lactobacil 2-S.Thermo-Bifido 1 1 Cap PO SCH (09:00)
--- NOTE | 2024-11-23 10:14 | NUR ---
ASSUMPTION OF CARE ASSUMED CARE OF PATIENT AT APPROXIMATELY 0700. PT RESTING IN BED, ALERT AND ORIENTED X4. PT ANSWERS QUESTIONS APPROPRIATELY, FOLLOWS DIRECTION WHEN PROMPTED AND IS ABLE TO MAKE HER NEEDS KNOWN. PT ASSISTS WITH TURNS. PT INTERMITENTLY CONFUSED, PULLING OFF MONITORING EQUIPMENT AND REMOVING GOWN. BED ALARM ON. PT IRRITABLE AND TEARFUL AT TIMES. HR 80-90'S SINUS, LEVOPHED INFUSING AT 12MCG/MIN AT START OF SHIFT, CURRENTLY INFUSING AT 6MCG/MIN, SEE FLOWSHEET FOR TITRATIONS. LEVOPHED INFUSING THROUGH PIV, PROVIDER AWARE. PT ON 3LPM VIA NC, OXYGEN SATURATION >94%. ABDOMEN SOFT, TENDER ON PALPATION. BOWEL TONES ACTIVE THROUGHOUT. BLADDER SCAN THIS AM SHOWED 145MLS. PIV IN PLACE TO RFA INFUSING LEVOPHED AND LR AT 150MLS/HR. POWERGLIDE IN PLACE TO CHRIS SL. BED IN LOWEST POSITION, CALL LIGHT WITHIN REACH, CARE CONTINUES.
--- NOTE | 2024-11-23 10:59 | NUR ---
PT UPDATE PT OUT OF BED DESPITE BED ALARM AND MULTIPLE CONVERSATIONS WITH HER ABOUT THE IMPORTANCE OF STAYING IN BED FOR SAFETY. SITTER AT THE BEDSIDE. CARE CONTINUES.
[2024-11-23 13:21] LABS: Hematocrit 40.8 % (33.0-51.0); Hemoglobin 12.8 g/dL (11.5-16.0)
--- NOTE | 2024-11-23 14:02 | NUR ---
PT UPDATE CALLED DR. MOROCHO TO ASK ABOUT A GI CONSULT. NONE ORDERED AT THIS TIME, PLAN TO CONTINUE TO MONITOR PT WELL TREND H&H AT THIS TIME. CARE CONTINUES.
[2024-11-23] MEDS ORDERED: Ondansetron HCl 2 MG / ML 2ML Vial IV PRN (14:25)
[2024-11-23] MEDS ORDERED: MetroNIDAZOLE 500MG/NS 100 ml 100 ML IV SCH (16:00)
--- NOTE | 2024-11-23 18:07 | NUR ---
SHIFT SUMMARY NO ACUTE CHANGES THIS SHIFT. PT CONTINUES TO REST IN BED SLEEPING BUT AROUSABLE. PT ANSWERS QUESTIONS APPROPRIATELY, FOLLOWS DIRECTION WHEN PROMPTED AND IS ABLE TO MAKE HER NEEDS KNOWN. PT MOVES EXTREMITIES EQUALLY BILATERALLY, ASSISTS WITH TURNS. HR 90'S SINUS, MAP >65, LEVOPHED ON SB. PT ON 3LPM VIA NC, OXYGEN SATURATION >92%. ABDOMEN SOFT, BOWEL TONES ACTIVE THROUGHOUT. PT USES BED MARTIN TO VOID. PIV IN PLACE TO RFA, POWERGLIDE IN PLACE TO CHRIS. LR INFUSING AT 150MLS/HR. BED IN LOWEST POSITION, CALL LIGHT WITHIN REACH, CARE CONTINUES.
[2024-11-23 19:40] LABS: Hematocrit 39.3 % (33.0-51.0); Hemoglobin 12.2 g/dL (11.5-16.0)
--- NOTE | 2024-11-23 21:48 | NUR ---
ASSUME CARE: BEDSIDE REPORT RECIEVED FROM DAYSHIFT RN. PT A/O TO SELF AND PLACE, CONFUSED ON SITUATION AND TIME, CONFUSED ON PLACE SOMETIMES. SBP 110s, MAP>65. MONITOR SHOWS SINUS RYTHM, RATE 90s. SPO2>90% ON 2L NC. ATTENDS IN PLACE. BED ALARM ON. WILL UPDATE NEEDED.
[2024-11-24] VITALS (32 sets, daily range): BP systolic 90–136; BP diastolic 49–113
[2024-11-24 01:13] LABS: Hematocrit 38.3 % (33.0-51.0); Hemoglobin 12.1 g/dL (11.5-16.0)
[2024-11-24 03:34] LABS: BASOPHILS ABSOLUTE AUTO 0.04 K/mm3 (0.00-0.23); BASOPHILS PERCENT AUTO 0 % (0-2); EOSINOPHILS ABSOLUTE AUTO 0.01 K/mm3 (0.00-0.68); EOSINOPHILS PERCENT AUTO 0 % (0-6); Hematocrit 37.7 % (33.0-51.0); Hemoglobin 12.1 g/dL (11.5-16.0); IMMATURE GRAN ABSOLUTE AUTO 0.16 K/mm3 (0.00-0.10); IMMATURE GRAN PERCENT AUTO 1 % (0-1); LYMPHOCYTES ABSOLUTE AUTO 0.77 K/mm3 (0.84-5.20); LYMPHOCYTES PERCENT AUTO 4 % (21-46); MONOCYTES ABSOLUTE AUTO 0.60 K/mm3 (0.16-1.47); MONOCYTES PERCENT AUTO 3 % (4-13); Mean Corpuscular HGB Conc 32.1 g/dL (31.5-36.5); Mean Corpuscular Volume 88 fL (80-100); NEUTROPHILS ABSOLUTE AUTO 19.01 K/mm3 (1.96-9.15); NEUTROPHILS PERCENT AUTO 92 % (41-73); NRBC ABSOLUTE 0.09 K/mm3 (0.00-0.02); NRBC Auto 0.4 /100 WBC (0.0-0.2); Platelet Count 101 K/mm3 (150-400); RDW Coefficient Variation 13.9 % (11.7-14.2); RDW Standard Deviation 44.3 fL (35.1-46.3)
[2024-11-24 03:52] LABS: Anion Gap 14.0 mmol/L (3-11); Blood Urea Nitrogen 48.0 mg/dL (8-24); CO2, Blood 22.0 mmol/L (21-32); Calcium, Blood 6.5 mg/dL (8.5-10.1); Chloride, Blood 104.0 mmol/L (98-108); Creatinine, Blood 3.36 mg/dL (0.40-1.00); Glucose, Blood 95.0 mg/dL (70-99); Potassium, Blood 5.2 mmol/L (3.5-5.5); Sodium, Blood 135.0 mmol/L (136-145)
--- NOTE | 2024-11-24 05:38 | NUR ---
SHIFT SUMMARY: PT A/O TO SELF ONLY, LETHARGIC AT TIMES. SBP 100-110s, MAP>65. MONITOR SHOWS SINUS RYTHM TO SINUS TACH, RATE 90-100s. SPO2>90% ON 4L NC. PT DENIES PAIN. ATTENDS IN PLACE. PT DENIES NEEDING TO VOID, NO OUTPUT THIS SHIFT. BLADDER SCAN SHOWS 160 ML. WILL CONTINUE TO ASSESS. WILL REPORT TO ONCOMING RN.
--- NOTE | 2024-11-24 07:29 | NUR ---
ASSUMPTION OF CARE AND LACK OF URINE OUTPUT: ASSUMED CARE OF PATIENT. PATIENT RESTING QUIETLY IN BED. VITALS CONTINUE TO BE STABLE WITH MAPS >65 AND HR IN THE LOW 100S. SPO2 >92% ON 4L VIA NC. NO SIGNS/SYMPTOMS OF DISTRESS AT THIS TIME. DR. MOROCHO AT BEDSIDE. DISCUSSED LACK OF URINE OUTPUT OVERNIGHT. NEW ORDERS IN PLACE FOR NEPHROLOGY CONSULT.
[2024-11-24 08:13] LABS: Hematocrit 37.3 % (33.0-51.0); Hemoglobin 11.9 g/dL (11.5-16.0)
[2024-11-24 09:00] LABS: Alanine Aminotransfer (ALT/SGP 4229.0 U/L (12-78); Albumin, Blood 2.6 g/dL (3.4-5.0); Albumin/Globulin Ratio 1.3 (0.8-1.8); Aspartate Aminotrans (AST/SGOT 11488.0 U/L (12-37); Bilirubin, Direct 0.9 mg/dL (0.0-0.3); Bilirubin, Indirect 0.6 mg/dL (0.1-0.7); Bilirubin, Total 1.5 mg/dL (0.1-1.0); Globulin, Blood 2.0 g/dL (2.2-4.0); Total Protein, Blood 4.6 g/dL (6.4-8.2)
[2024-11-24] MEDS ORDERED: NS 1,000 ML IV SCH (13:05)
[2024-11-24 14:51] LABS: pH Blood Venous 7.20 (7.34-7.37)
--- NOTE | 2024-11-24 15:20 | NUR ---
PATIENT STATUS: PATIENT HAS CONTINUED TO BE DROWSY THROUGHOUT THE MORNING. DISCUSSED WITH RN THAT CARED FOR PATIENT YESTERDAY. DISCUSSED WITH DR. MOROCHO. NEW LAB ORDERS IN PLACE. RESULTS DETERMINED NEED FOR BIPAP. RT SHANNON AT BEDSIDE. AT THIS TIME. PATIENT IS MORE ALERT AND ABLE TO ASK THIS RN "HOW ARE YOU". BIPAP IN PLACE WITH SETTINGS OF 12/5. SPO2 CURRENTLY AT 94%. PATIENT TOLERATING BIPAP WELL. SLEEPING AT THIS TIME.
[2024-11-24 17:35] LABS: pH Blood Venous 7.21 (7.34-7.37)
--- NOTE | 2024-11-24 17:45 | NUR ---
REPEAT VBG RESULTS: NOTIFIED DR. MOROCHO OF REPEAT VBG RESULTS. MILD IMPROVEMENT NOTED. NO NEW ORDERS AT THIS TIME.
--- NOTE | 2024-11-24 18:30 | NUR ---
LOW MINUTE VOLUME: PATIENT HAS HAD A WIDE VARIETY OF MINUTE VOLUMES. NOTED THAT THE PATIENT'S MINUTE VOLUME WAS 1.9. NOTIFIED RT. RT AT BEDSIDE. CHANGES MADE TO ASSIST IN STABILIZING MINUTE VOLUMES.
--- NOTE | 2024-11-24 19:12 | NUR ---
SHIFT SUMMARY: NEURO: PATIENT DROWSY THROUGHOUT THE SHIFT. SEE NURSE'S NOTE RE: PATIENT STATUS. FROM MID AFTERNOON ONWARD, PATIENT HAD SOME IMPROVEMENT IN ABILITY TO INTERACT WITH STAFF (ABLE TO KEEP EYES OPEN WHEN SPEAKING AND SPOKE IN SHORT SENTENCES, CONTINUED TO FALL ASLEEP QUICKLY). RESPIRATORY: PATIENT STARTED ON BIPAP THIS AFTERNOON. PATIENT TOLERATED WELL. SEE NOTE RE: LOW MINUTE VENTILATION. BY THE END OF SHIFT, SETTINGS AT 14/7. MINUTE VENTILATION STABILIZED. SPO2 92% AT THE TIME OF THIS NOTE. CARDIAC: VITALS STABLE WITH MAPS >65. HR IN THE LOW 100S. SCDS IN PLACE. GI/: DR. CHOUDHURY CONSULTED AND AT BEDSIDE TODAY. DISCUSSED FINDINGS OF PATIENT. PATIENT BLADDER SCANNED TWICE WITH 216 ML AND 200 ML THE RESULTS. NO VOID DURING THE SHIFT. PATIENT NOW HAS AN ADAT ORDER. PATIENT UNSAFE TO SWALLOW TODAY RELATED TO DROWSINESS. PSYCHSOCIAL: PATIENT CALM AND COOPERATIVE. PATIENT'S LOIDA AT BEDSIDE THIS AM. PATIENT'S SISTER PABLO CALLED TO CHECK IN ON THE PATIENT. THEY ARE CALM AND ENCOURAGING OF THE PATIENT.
--- NOTE | 2024-11-24 21:04 | NUR ---
ASSUME CARE: PT ALERT TO VERBAL STIMULI AND ABLE TO FOLLOW COMMANDS. PT NOT ORIENTED AND UNABLE TO ANSWER QUESTIONS WITHOUT FALLING ASLEEP. BIPAP IN PLACE, SETTINGS 14/ AT 30%. SPO2>90%. VSS. WILL UPDATE NEEDED.
[2024-11-25] VITALS (24 sets, daily range): BP systolic 106–136; BP diastolic 53–85
[2024-11-25 04:32] LABS: Albumin, Blood 2.5 g/dL (3.4-5.0); Albumin/Globulin Ratio 1.2 (0.8-1.8); Anion Gap 13.0 mmol/L (3-11); Bilirubin, Total 1.8 mg/dL (0.1-1.0); Blood Urea Nitrogen 69.0 mg/dL (8-24); CO2, Blood 22.0 mmol/L (21-32); Calcium, Blood 6.6 mg/dL (8.5-10.1); Chloride, Blood 106.0 mmol/L (98-108); Creatinine, Blood 4.21 mg/dL (0.40-1.00); Globulin, Blood 2.0 g/dL (2.2-4.0); Glucose, Blood 95.0 mg/dL (70-99); Phosphorus, Blood 5.7 mg/dL (2.5-4.9); Potassium, Blood 5.2 mmol/L (3.5-5.5); Sodium, Blood 136.0 mmol/L (136-145); Total Protein, Blood 4.5 g/dL (6.4-8.2)
[2024-11-25 04:58] LABS: Alanine Aminotransfer (ALT/SGP 3170.0 U/L (12-78); Aspartate Aminotrans (AST/SGOT 5844.0 U/L (12-37)
--- NOTE | 2024-11-25 06:02 | NUR ---
SHIFT SUMMARY: PT ALERT AND ORIENTED TO SELF AND PLACE W/INTERMITTENT CONFUSION, ABLE TO FOLLOW COMMANDS. VSS. PT ABLE TO TOLERATE BIPAP FOR MOST OF THE NIGHT W/SHORT BREAKS FOR ORAL CARE, SETTINGS 03/12 AT 30%. PT UNABLE TO VOID, BLADDER SCANS WERE SHOWING INCONSISTENT RESULTS, MARTINEZ PLACED W/ 200 ML TEA COLOR URINE OUT. WILL REPORT TO ONCOMING RN.
[2024-11-25 10:45] LABS: BASOPHILS ABSOLUTE AUTO 0.03 K/mm3 (0.00-0.23); BASOPHILS PERCENT AUTO 0 % (0-2); EOSINOPHILS ABSOLUTE AUTO 0.00 K/mm3 (0.00-0.68); EOSINOPHILS PERCENT AUTO 0 % (0-6); Hematocrit 35.2 % (33.0-51.0); Hemoglobin 11.5 g/dL (11.5-16.0); IMMATURE GRAN ABSOLUTE AUTO 0.42 K/mm3 (0.00-0.10); IMMATURE GRAN PERCENT AUTO 2 % (0-1); LYMPHOCYTES ABSOLUTE AUTO 0.54 K/mm3 (0.84-5.20); LYMPHOCYTES PERCENT AUTO 3 % (21-46); MONOCYTES ABSOLUTE AUTO 0.86 K/mm3 (0.16-1.47); MONOCYTES PERCENT AUTO 4 % (4-13); Mean Corpuscular HGB Conc 32.7 g/dL (31.5-36.5); Mean Corpuscular Volume 86 fL (80-100); NEUTROPHILS ABSOLUTE AUTO 17.90 K/mm3 (1.96-9.15); NEUTROPHILS PERCENT AUTO 91 % (41-73); NRBC ABSOLUTE 0.08 K/mm3 (0.00-0.02); NRBC Auto 0.4 /100 WBC (0.0-0.2); Platelet Count 114 K/mm3 (150-400); RDW Coefficient Variation 14.5 % (11.7-14.2); RDW Standard Deviation 45.0 fL (35.1-46.3)
[2024-11-25 12:34] LABS: pH Blood Venous 7.26 (7.34-7.37)
[2024-11-25 13:01] LABS: Prothrombin Time Results 17.7 Sec (9.7-11.5)
--- NOTE | 2024-11-25 16:44 | NUR ---
SHIFT SUMMARY PT A/O TO SELF, LETHARGIC. FOLLOWS COMMANDS WITH WEAKNESS. AFEBRILE. NS-ST, BP WITHIN PARAMETERS. REMAINED ON BIPAP WITH BREAKS FROM 6-9AM AND [id number] WHEN PT BEGAN ATTEMPTING TO REMOVE MASK. ORAL CARE PERFORMED. TONGUE COATED. DENTURES NOT IN PLACE. NPO DUE TO MENTATION BUT ABLE TO TAKE SMALL SIPS OF WATER WITH CONTINUOUS VERBAL CUES. ORAL MEDICATIONS ADMINISTERED. MARTINEZ REMAINS IN PLACE FOR RETENTION AND I/OS. 45 ML URINE OUTPUT - DR. CHOUDHURY AWARE - IVF DECREASED TO 90 ML/HR. PIV TO RFA, MIDLINE TO CHRIS. FLAGYL IV AND VANC PO FOR ABX COVERAGE. NO BM. SISTER UPDATED TO STATUS AND PLANS TO VISIT IN THE MORNING. SAFETY, COMFORT, HYGIENE ADDRESSED.
[2024-11-25] MEDS ORDERED: NS 1,000 ML IV SCH (17:20)
--- NOTE | 2024-11-25 18:14 | NUR ---
PT CARE PT ATTEMPTING TO REMOVE BIPAP. BIPAP REMOVED AND 2LNC PLACED.
--- NOTE | 2024-11-25 18:16 | NUR ---
VIT K ADMIN 2.5MG/50ML VITAMIN K ADMINISTERED PER DR. CHOUDHURY FOR POSSIBLE DIALYSIS CATHETER PLACEMENT IN AM.
[2024-11-26] VITALS (42 sets, daily range): BP systolic 91–143; BP diastolic 64–93
[2024-11-26 04:06] LABS: pH Blood Venous 7.31 (7.34-7.37)
[2024-11-26 04:18] LABS: BASOPHILS ABSOLUTE AUTO 0.07 K/mm3 (0.00-0.23); BASOPHILS PERCENT AUTO 0 % (0-2); EOSINOPHILS ABSOLUTE AUTO 0.21 K/mm3 (0.00-0.68); EOSINOPHILS PERCENT AUTO 1 % (0-6); Hematocrit 34.3 % (33.0-51.0); Hemoglobin 11.4 g/dL (11.5-16.0); IMMATURE GRAN ABSOLUTE AUTO 0.56 K/mm3 (0.00-0.10); IMMATURE GRAN PERCENT AUTO 3 % (0-1); LYMPHOCYTES ABSOLUTE AUTO 0.69 K/mm3 (0.84-5.20); LYMPHOCYTES PERCENT AUTO 3 % (21-46); MONOCYTES ABSOLUTE AUTO 1.46 K/mm3 (0.16-1.47); MONOCYTES PERCENT AUTO 7 % (4-13); Mean Corpuscular HGB Conc 33.2 g/dL (31.5-36.5); Mean Corpuscular Volume 87 fL (80-100); NEUTROPHILS ABSOLUTE AUTO 18.50 K/mm3 (1.96-9.15); NEUTROPHILS PERCENT AUTO 86 % (41-73); NRBC ABSOLUTE 0.09 K/mm3 (0.00-0.02); NRBC Auto 0.4 /100 WBC (0.0-0.2); Platelet Count 117 K/mm3 (150-400); RDW Coefficient Variation 14.9 % (11.7-14.2); RDW Standard Deviation 46.6 fL (35.1-46.3)
[2024-11-26 04:31] LABS: Prothrombin Time Results 14.9 Sec (9.7-11.5)
[2024-11-26 05:30] LABS: Alanine Aminotransfer (ALT/SGP 2305.0 U/L (12-78); Albumin, Blood 2.7 g/dL (3.4-5.0); Albumin/Globulin Ratio 1.4 (0.8-1.8); Anion Gap 14.0 mmol/L (3-11); Aspartate Aminotrans (AST/SGOT 2571.0 U/L (12-37); Bilirubin, Total 1.9 mg/dL (0.1-1.0); Blood Urea Nitrogen 97.0 mg/dL (8-24); CO2, Blood 19.0 mmol/L (21-32); Calcium, Blood 7.1 mg/dL (8.5-10.1); Chloride, Blood 109.0 mmol/L (98-108); Creatinine, Blood 5.56 mg/dL (0.40-1.00); Globulin, Blood 2.0 g/dL (2.2-4.0); Glucose, Blood 103.0 mg/dL (70-99); Phosphorus, Blood 5.6 mg/dL (2.5-4.9); Potassium, Blood 5.2 mmol/L (3.5-5.5); Sodium, Blood 137.0 mmol/L (136-145); Total Protein, Blood 4.7 g/dL (6.4-8.2)
--- NOTE | 2024-11-26 06:24 | NUR ---
SHIFT SUMMARY NO ACUTE EVENTS OVERNIGHT. PATIENT REMAINED OFF BIPAP. SPO2 >95% ON 2LNC. DROWSY THROUGHOUT THE NIGHT, BUT WILL AWAKEN TO VERBAL STIMULI. ALERT TO SELF. WILL REPEAT WORDS AND DIFFICULT AT TIMES TO REDIRECT. EYES DISCONJUGATE. WILL FOLLOW COMMANDS, WEAKLY. NSR TO ST ON CONTINOUS CARDIAC MONITORING. HEART RATE 95-110S. PRODUCING MINIMAL URINE, DARK MARTHA IN COLOR. NO BM OVERNIGHT. SQ HEPARIN HELD FOR POSSIBLE DIALYSIS CATHETER PLACEMENT TODAY. CARE PLAN ONGOING.
[2024-11-26] MEDS ORDERED: Heparin Sodium,Porcine 5,000 UNIT/0.5 ML SDV SC SCH ×2 (09:00→21:00)
--- NOTE | 2024-11-26 10:47 | NUR ---
SETTING UP CONSENTING FOR DIALYSIS AND TEMP DIALYSIS PORT PLACEMENT PT WITH AMS AND ORIENTED TO SELF. THIS RN ATTEMPTED TO CALL THE PT'S PARTNER LOIDA, BUT THIS RN WAS UNABLE TO GET AHOLD OF HIM. THE PT'S EX [id number] ERNESTINE EMERSON SHOWED UP AND INFORMED STAFF THAT THE PT AND LOIDA HAVE BEEN FOR YEARS BUT ARE STILL AQUAINTED. MANUEL STATED THAT THE PT DOES HAVE A BROTHER, YOANNA JF, WHO IS ALSO LISTED THE NEXT OF KIN. PHONE [phone]. MANUEL CALLED YOANNA AND LET HIM KNOW THAT OUR DOCTORS WILL BE CALLING HIM FOR CONSENT.
[2024-11-26] MEDS ORDERED: Midazolam HCl 1MG / ML 2ML Vial IV ONE (11:55)
[2024-11-26] MEDS ORDERED: FentaNYL Citrate 50 MCG/ML 2 ML Injection IV ONE (11:55)
--- NOTE | 2024-11-26 12:05 | NUR ---
MORNING SUMMARY THE PT IS DROWSY BUT ARROUSABLE AND ORIENTED TO SELF AND PERSON. HER EX [id number] AHS BEEN AT [facility] AND UPDATED ON CARE. SHE FOLLOWS COMMANDS AT TIMES, BUT DOES NOT ALWAYS FOLLOW DIRECTIONS. PT IS VERY WEAK BILATERALLY. DR. THOMAS AND DR. CHOUDHURY CALLED THE PT'S NEXT OF KIN- BROTHER, YOANNA RHOADES. CONSENT WAS OBTAINED FOR A TEMPORARY DIALYSIS PORT AND CONSENT FOR DIALYSIS SERVICED. PLAN FOR PORT PLACEMENT WITHIN THE NEXT HOUR AND DIALYSIS TODAY. THE PT HAS BEEN ON 2L NC W/ SP02 >93%. THE PT DENIES ANY SOB, BUT DOES STATE IT HURTS TO TAKE DEEP BREATHS. ON TELE SHE HAS BEEN SR/ST 90'S-100'S W/ PAC'S. HER ABD IS FIRM AND TENDER TO TOUCH, PROVIDERS AWARE. SMEAR NOTED THIS AM WHEN CHANGING HER BREIF. A MARTINEZ IS DRAINING TO GRAVITY W/ MINIMAL TO NO OUTPUT. DR. CHOUDHURY EVALUATED PT'S URINE OUTPUT AND IT OKAY WITH REMOVING MARTINEZ AT THIS TIME. SEE NOTES FOR UPDATES.
--- NOTE | 2024-11-26 14:20 | NUR ---
DR. THOMAS PLACE TRIALYSIS PORT IN [place]. SENIOR AUDITOR WADE REAGAN RN ASSISTED. THE PT RECIEVED 50MCG OF FENTANYL DURING THE PROCEDURE. A XRAY WAS PREFORMED AFTER PLACEMENT AND CONFIRMED BUT DR. THOMAS. PER DR. CHOUDHURY, FLORA RN CALLED CHRISTIAN, THE DIALYSIS NURSE, AND LET HIM KNOW THAT HE CAN DO DIALYSIS ON THE PT. CHRISTIAN STATED HE WOULD BE IN TO RUN THE PT WITHIN THE HOUR. PT'S FORMER [id number] WAS IN THE WAITING ROOM DURING THE PROCEDURE AND HAS SINCE RETURNED TO THE PT'S BEDSIDE. A BEDBATH AND CHG BATH WAS PREFORMED ON THE PT WITH NEW LINENS. THE PT'S ISOLATION HAS BEEN UPGRADED TO AIRBORN D/T QUABTIFERON TB GOLD IN-TUBE SEND OUT LAB. SENIOR AUDITOR AWARE AND PT AND FAMILY UPDATES. SEE NOTES FOR UPDATES.
[2024-11-26] MEDS ORDERED: FentaNYL Citrate 50 MCG/ML 2 ML Injection IV PRN (14:55)
[2024-11-26] MEDS ORDERED: CefTRIAXone Sodium 1,000 MG in NS 100 ML IV SCH (15:00)
--- NOTE | 2024-11-26 16:05 | NUR ---
DR. CHOUDHURY CALLED THIS NURSE ABOUT THE PT NOT NEEDING TO BE ON AIRBORN ISOLATION FOR THE QUANTIFERON TB TEST. HE STATES IT IS A MANDATORY TEST FOR DIALYSIS OUTPT. THIS WAS DISCUSSED WITH EXCELLENCE SPECIALIST TOBI. PT IS NOW BACK IN HER ENTERIC PERCAUTIONS FOR CDIFF.
--- NOTE | 2024-11-26 17:57 | NUR ---
PT IS STILL RECIEVING DIALYSIS UNTIL ABOUT 1830. A 1:1 SITTER WAS OBTAINED BECAUSE THE PT KEEPS PULLING AT HER RIJ. PLAN TO MOVE THE PT TO PCU 10 AFTER DIALYSIS IS COMPLETED.
[2024-11-26] MEDS ORDERED: MetroNIDAZOLE 500MG/NS 100 ml 100 ML IV SCH (20:00)
[2024-11-26] MEDS ORDERED: Haloperidol Lactate Inj. 5 MG/ML Injection ONE (22:23)
[2024-11-26] MEDS ORDERED: Haloperidol Lactate Inj. 5 MG/ML Injection IV ONE (22:25)
[2024-11-27] VITALS (23 sets, daily range): BP systolic 91–128; BP diastolic 53–75
[2024-11-27 05:13] LABS: BASOPHILS ABSOLUTE AUTO 0.09 K/mm3 (0.00-0.23); BASOPHILS PERCENT AUTO 0 % (0-2); EOSINOPHILS ABSOLUTE AUTO 0.00 K/mm3 (0.00-0.68); EOSINOPHILS PERCENT AUTO 0 % (0-6); Hematocrit 30.4 % (33.0-51.0); Hemoglobin 10.4 g/dL (11.5-16.0); IMMATURE GRAN ABSOLUTE AUTO 0.70 K/mm3 (0.00-0.10); IMMATURE GRAN PERCENT AUTO 4 % (0-1); LYMPHOCYTES ABSOLUTE AUTO 0.65 K/mm3 (0.84-5.20); LYMPHOCYTES PERCENT AUTO 3 % (21-46); MONOCYTES ABSOLUTE AUTO 2.24 K/mm3 (0.16-1.47); MONOCYTES PERCENT AUTO 11 % (4-13); Mean Corpuscular HGB Conc 34.2 g/dL (31.5-36.5); Mean Corpuscular Volume 84 fL (80-100); NEUTROPHILS ABSOLUTE AUTO 16.55 K/mm3 (1.96-9.15); NEUTROPHILS PERCENT AUTO 82 % (41-73); NRBC ABSOLUTE 0.07 K/mm3 (0.00-0.02); NRBC Auto 0.3 /100 WBC (0.0-0.2); Platelet Count 105 K/mm3 (150-400); RDW Coefficient Variation 15.0 % (11.7-14.2); RDW Standard Deviation 45.1 fL (35.1-46.3)
--- NOTE | 2024-11-27 05:18 | NUR ---
NOC SHIFT SUMMARY PT IS ALERT BUT ONLY ORIENTATED 1-[address]IM[address] PATIENT NOT FOLLOWING COMMANDS FROM STAFF. DURING THE NIGHT PT BECAME VERY AGGIATED AND WAS YELLING AT STAFF SHE WAS CONFUSED ON WHO STAFF WAS AND WHERE SHE WAS. SHE WAS MEDICATED X1 W/ HALDOL AND WAS ABLE TO CALM DONE. 1:1 SITTER HAS REMAINED IN THE ROOM WITH PT ALL NIGHT AND HAD HELPED TO KEEP HER FROM PULLING AT LINES. LUE POWERGLIDE DRAWS AND HAS IV FLUIDS RUNNING TKO. IJ CATH DRESSING C/D/I. TELE IN PLACE SHOWER HR OF 90-110s DENIES CHEST PAIN OR PRESSURE WHEN ASKED. NC IN PLACE AT 2 LITERS >90% SPO2. SHE HAS REMAINED BEDREST DURING THE NIGHT AND REPOSTIONED FOR COMFORT T/O THE SHIFT. SCD'S IN PLACE. BED IN LOWEST POSTION CALL LIGHT IN REACH, WILL CONTINUE W/ PLAN OF CARE AND REPORT TO ONCOMING RN.
[2024-11-27 05:19] LABS: Prothrombin Time Results 14.1 Sec (9.7-11.5)
[2024-11-27 06:04] LABS: Alanine Aminotransfer (ALT/SGP 2399.0 U/L (12-78); Albumin, Blood 2.6 g/dL (3.4-5.0); Albumin/Globulin Ratio 1.3 (0.8-1.8); Anion Gap 10.0 mmol/L (3-11); Aspartate Aminotrans (AST/SGOT 1354.0 U/L (12-37); Bilirubin, Total 1.9 mg/dL (0.1-1.0); Blood Urea Nitrogen 67.0 mg/dL (8-24); CO2, Blood 26.0 mmol/L (21-32); Calcium, Blood 7.5 mg/dL (8.5-10.1); Chloride, Blood 109.0 mmol/L (98-108); Creatinine, Blood 4.07 mg/dL (0.40-1.00); Globulin, Blood 2.0 g/dL (2.2-4.0); Glucose, Blood 103.0 mg/dL (70-99); Phosphorus, Blood 3.9 mg/dL (2.5-4.9); Potassium, Blood 4.7 mmol/L (3.5-5.5); Sodium, Blood 140.0 mmol/L (136-145); Total Protein, Blood 4.6 g/dL (6.4-8.2)
[2024-11-27 09:14] LABS: HEPATITIS A ANTIBODY, IGM Negative (Negative); HEPATITIS C AB CIA INTERP Low Pos (Negative); HEPATITIS C ANTIBODY CIA INDEX 9.62 IV
[2024-11-27] MEDS ORDERED: Pantoprazole Sodium 40 MG Injection IV SCH (16:30)
--- NOTE | 2024-11-27 17:15 | NUR ---
SHIFT SUMMARY: PT HAS BEEN OBTUNDED, CONFUSED, RAMBLING W/SLURRED NONSENSICAL SPEECH. INITIALLY THIS AM, PT WAS ABLE TO STATE HER NAME AND , MINIMAL SITUATION AND REPETITIVELY TALKED ABOUT WANTING TO GO HOME. AFTER GOING TO DIALYSIS TODAY, PT IS MORE CONFUSED AND NOT MAKING EYE CONTACT OR ANSWERING QUESTIONS. REPEAT HEAD CT AND ABD/PELVIS CT PERFORMED THIS SHIFT. O2 SATS MAINTAINED >93% ON RA-2L, CURRENTLY ON 1L NC. SINUS TACH ON MONITOR W/RATE 110s, VSS. LOW PO INTAKE CONTINUES, NO BM TODAY, NO U.O. THIS SHIFT, 1L WAS TAKEN OFF IN DIALYSIS. ORAL CARE PERFORMED AND PT REPOSITIONED TOLERATED. R HIP PRESSURE WOUND IS BLANCHABLE BUT SKIN IS TIGHT/EDEMATOUS. PLAN FOR DIALYSIS TOMORROW PER DR QUIROS/NEPHROLOGY. 1:[address] FOR PROTECTION OF LINES.
[2024-11-28] VITALS (19 sets, daily range): BP systolic 92–130; BP diastolic 48–75
--- NOTE | 2024-11-28 05:18 | NUR ---
SHIFT SUMMARY PT ALERT, ORIENTED TO SELF. PT CAN ANSWER SOME YES/NO QUESTIONS THAT APPEAR APPRORIATE BUT MOSTLY MUMMBLING WORDS THAT DO NOT MAKE SENSE. SHE IS HAVING BOTH AUDITORY/VISUAL HALLUCINATIONS AND HAVING CONVERSATIONS WITH PEOPLE WHO ARE NOT PRESENT. PT AGITATED T/O NIGHT WHILE PROVIDING CARE, MEDICATED PER EMAR. 1:1 SITTER AT BEDSIDE T/O SHIFT. HR IN THE 110'S WITH OCASSIONAL INCREASE TO THE 120'S FOR A FEW SECONDS. WHEN ASKED ABOUT CP/PRESSURE PT SHAKED HEAD NO. SBP STABLE IN THE 120'S. O2 >90% ON 1L VIA NC. PT HAS HAD MINIMAL INPUT/OUTPUT T/O SHIFT. SMALL SIPS OF WATER WITHMEDICATIONS. BLADDER SCAN COMPLETED THIS AM WITH ON 15MLS. SHE HAS A TRI CATH TO THE RIGHT IJ. PT RESTING IN BED AT THIS TIME. SITTER AT BEDSIDE, CALL LIGHT IN REACH. WILL MONITOR PT AND REPORT TO ONCOMING RN.
[2024-11-28 05:22] LABS: Hematocrit 29.5 % (33.0-51.0); Hemoglobin 10.2 g/dL (11.5-16.0); Mean Corpuscular HGB Conc 34.6 g/dL (31.5-36.5); Mean Corpuscular Volume 83 fL (80-100); NRBC ABSOLUTE 0.04 K/mm3 (0.00-0.02); NRBC Auto 0.3 /100 WBC (0.0-0.2); Platelet Count 85 K/mm3 (150-400); RDW Coefficient Variation 15.3 % (11.7-14.2); RDW Standard Deviation 44.0 fL (35.1-46.3)
[2024-11-28 06:05] LABS: BASOPHILS ABSOLUTE MAN 0.00 K/mm3 (0.00-0.23); BASOPHILS PERCENT MAN 0 % (0-2); EOSINOPHILS ABSOLUTE MAN 0.31 K/mm3 (0.00-0.68); EOSINOPHILS PERCENT MAN 2 % (0-6); LYMPHOCYTES ABSOLUTE MAN 1.86 K/mm3 (0.84-5.20); LYMPHOCYTES PERCENT MAN 12 % (21-46); METAMYELOCYTE ABSOLUTE MAN 0.31 K/mm3 (0.00-0.00); METAMYELOCYTE PERCENT MAN 2 % (0-0); MONOCYTES ABSOLUTE MAN 1.86 K/mm3 (0.16-1.47); MONOCYTES PERCENT MAN 12 % (4-13); NEUTROPHILS ABSOLUTE MAN 11.16 K/mm3 (1.96-9.15); SEG NEUTROPHILS PERCENT MAN 72 % (41-73)
[2024-11-28] MEDS ORDERED: CARBIDOPA-LEVO1 EA15 PO (06:24)
[2024-11-28] MEDS ORDERED: PREGABALIN100 MG PO (06:25)
[2024-11-28 06:45] LABS: Alanine Aminotransfer (ALT/SGP 1925.0 U/L (12-78); Albumin, Blood 2.4 g/dL (3.4-5.0); Albumin/Globulin Ratio 1.3 (0.8-1.8); Anion Gap 7.0 mmol/L (3-11); Aspartate Aminotrans (AST/SGOT 750.0 U/L (12-37); Bilirubin, Total 1.4 mg/dL (0.1-1.0); Blood Urea Nitrogen 48.0 mg/dL (8-24); CO2, Blood 31.0 mmol/L (21-32); Calcium, Blood 7.5 mg/dL (8.5-10.1); Chloride, Blood 102.0 mmol/L (98-108); Creatinine, Blood 3.29 mg/dL (0.40-1.00); Globulin, Blood 1.9 g/dL (2.2-4.0); Glucose, Blood 83.0 mg/dL (70-99); Phosphorus, Blood 2.8 mg/dL (2.5-4.9); Potassium, Blood 3.5 mmol/L (3.5-5.5); Sodium, Blood 136.0 mmol/L (136-145); Total Protein, Blood 4.3 g/dL (6.4-8.2)
--- NOTE | 2024-11-28 09:00 | NUR ---
NURSING PCU DAYSHIFT: Assumed care of pt at approx 0700. Awakes w/verbal stimuli though quickly returns to resting w/eyes closed. Speech is slow, slightly mumbled, follows commands, weakness t/o. Skin fragile, abrasion/pressure injury to R cheek, redness/pressure injury to R hip w/bruising and non-pitting edema. Oriented to self only, sitter at bedside for line monitoring. Tele in place, ST, no c/o CP/pressure, SBP 114 prior to a.m. meds, trace-1+ RLE edema. L/S fairly cta t/o, respirations shallow, O2 sat mid 90's on 1L NC. Abd SNT, BT+, not producing urine at this time. PIV x1/PG x1 s/l, temp HD port to RIJ. Pt currently at HD, nurse physician rounding completed. Plan for US of RLE. No s/s of acute distress. Pt denies any current questions/needs. Will await resutls of RLE u/s, cont to monitor for changes.
[2024-11-28] MEDS ORDERED: PREG50 PO (12:59)
[2024-11-28 13:06] LABS: HCV QNT BY NAAT (IU/ML) Not Detected; HCV QNT BY NAAT (LOG IU/ML) Not Detected; HCV QNT BY NAAT INTERP Not Detected (Not Detected)
[2024-11-28] MEDS ORDERED: Magnesium Hydroxide Conc 10 ML UDC PT PRN (14:05)
[2024-11-28] MEDS ORDERED: Docusate Sodium Liquid 100 MG UDC PT PRN (14:05)
[2024-11-28] MEDS ORDERED: Protein Supplement 30 ML UD PT SCH (14:20)
--- NOTE | 2024-11-28 14:43 | NUR ---
PT WAS ASLEEP DURING MY ROUNDS. SHE WAS DIFFICULT TO AWAKEN AND SEEMED CONFUSED. CALLED PTS BROTHER. DISCUSSED WHAT LIFE FOR LIVIA WAS LIKE PRIOR TO COMING TO THE HOSPITAL. HE EXPRESSED THAT SHE WAS "NORMAL" AND "ACTIVE" SHE TOOK CARE OF HERSELF AND ACTED A CAREGIVER FOR THEIR YOUNGER SISTER WHO IS DEVELOPMENTALLY DELAYED. LIVIA AND HER SISTER LIVE TOGETHER AND YOANNA LIVES NEXT DOOR. HE REPORTS THAT WHEN HE IS NOT AT WORK OR SLEEPING HE IS USUALLY AT THEIR HOUSE.
[2024-11-28] MEDS ORDERED: IMITREX100 MG PO (14:49)
[2024-11-28] MEDS ORDERED: Darbepoetin (Pharmacy Consult) SC PRN (17:50)
--- NOTE | 2024-11-28 18:00 | NUR ---
NURSING PCU DAYSHIFT SUMMARY: Pt has continued to do well t/o the shift. HD completed this a.m. Pt more lethargic post HD and would only awaken w/physical stimuli though fell asleep quickly. Sitter remains at bedside to protect lines. U/S of RLE completed, results reviewed. Home medications reviewed and discussed w/PMD per d/o. Met w/marine equipment preservation inspector, discussed plan to increase nutrition. Dobhoff placed to R nare by peer RN, CXR completed and reviewed, TF initiated at 25mls/hr w/goal rate of 50mls/hr, H2O flush 80mls Q6. Continue w/FL diet and PO supplements, minimal appetite. Continues w/o u/o, one medium liquid/jelly BM. Q2 repositioning maintained, CHG bath completed. Family at bedside this afternoon, plan of care discussed, update provided. IR consulted for permacath placement tomorrow, NPO after midnight for procedure. Music Rehabilitation Therapist provider changed per patient family request d/t family familiarity, previous nephro team notified, Dr. King made aware of new consult. No s/s of acute distress at this time. Continue to monitor until rpt is given to NOC RN.
[2024-11-29] VITALS (8 sets, daily range): BP systolic 112–131; BP diastolic 59–72
[2024-11-29 05:43] LABS: Hematocrit 30.1 % (33.0-51.0); Hemoglobin 10.1 g/dL (11.5-16.0); Mean Corpuscular HGB Conc 33.6 g/dL (31.5-36.5); Mean Corpuscular Volume 85 fL (80-100); NRBC ABSOLUTE 0.02 K/mm3 (0.00-0.02); NRBC Auto 0.1 /100 WBC (0.0-0.2); Platelet Count 79 K/mm3 (150-400); RDW Coefficient Variation 15.9 % (11.7-14.2); RDW Standard Deviation 47.6 fL (35.1-46.3)
--- NOTE | 2024-11-29 06:27 | NUR ---
ASSUMPTION OF CARE PT ALERT, ORIENTED TO SELF. SHE IS ABLE TO ANSWER YES/NO QUESTIONS APPROPRIATELY. PT MORE ALERT T/O NIGHT THEN PRIOR SHIFT AND ABLE TO HAVE CONVERSATION WITH APPROPRIATE RESPONSES. HR IN THE 80'S, SR, SHE DENIES CP/PRESSURE, SBP STABLE. 02 >90% ON 1L VIA NC. PT HAS HAD MINIMAL URINE OUTPUT, SHE HAS BEEN RECIEVING DIALYIS. PT HAS R NARE DOBHOFF IN PLACE. PT WAS RECIEVING TUBE FEEDING AT 25ML/HR UP UNTIL MIDNIGHT WHEN IT WAS SHUT OFF FOR NPO FOR PROCEDURE. PT NPO SINCE MN. PT RESTING IN BED AT THIS TIME. CALL LIGHT IN REACH. SITTER AT BEDSIDE. WILL MONITOR PT AND REPORT TO ONCOMING RN.
[2024-11-29 06:30] LABS: BAND PERCENT MAN 8 % (0-8); BASOPHILS ABSOLUTE MAN 0.00 K/mm3 (0.00-0.23); BASOPHILS PERCENT MAN 0 % (0-2); EOSINOPHILS ABSOLUTE MAN 0.00 K/mm3 (0.00-0.68); EOSINOPHILS PERCENT MAN 0 % (0-6); LYMPHOCYTES ABSOLUTE MAN 0.34 K/mm3 (0.84-5.20); LYMPHOCYTES PERCENT MAN 2 % (21-46); MONOCYTES ABSOLUTE MAN 1.36 K/mm3 (0.16-1.47); MONOCYTES PERCENT MAN 8 % (4-13); MYELOCYTE ABSOLUTE MAN 0.51 K/mm3 (0.00-0.00); MYELOCYTE PERCENT MAN 3 % (0-0); NEUTROPHILS ABSOLUTE MAN 14.79 K/mm3 (1.96-9.15); SEG NEUTROPHILS PERCENT MAN 79 % (41-73)
[2024-11-29 07:48] LABS: Magnesium, Blood 2.2 mg/dL (1.6-2.4)
--- NOTE | 2024-11-29 08:44 | NUR ---
AM NOTE PT IS ALERT TO SELF, PLACE, SITUATION AND MONTH/YEAR. SHE IS ABLE TO MAKE HER NEEDS KNOWN AND EXPRESSED SOME CONCERNS REGARDING THE PROCEDURE TO PLACE HER PERMA CATH TODAY. THIS RN HAD A THERAPEUTIC CONVERSATION WITH PT REGARDING PLAN OF CARE. BP AND HR STABLE, SPO2 MAINTAINED >93% VIA 1L NC. SHE DENIES FEELING SOB, CHEST PAIN/PRESSURE OR LIGHTHEADED/DIZZY. TUBE FEED IS ON PAUSE SINCE MIDNIGHT DUE TO PLANNED PERMA CATH PLACEMENT PROCEDURE. SHE DENIES FEELING NAUSEOUS. 1:1 SITTER SINDY IS AT BEDSIDE. CALL LIGHT IS W/IN REACH.
[2024-11-29 09:25] LABS: Alanine Aminotransfer (ALT/SGP 1479.0 U/L (12-78); Albumin, Blood 2.4 g/dL (3.4-5.0); Albumin/Globulin Ratio 1.2 (0.8-1.8); Anion Gap 7.0 mmol/L (3-11); Aspartate Aminotrans (AST/SGOT 498.0 U/L (12-37); Bilirubin, Total 1.0 mg/dL (0.1-1.0); Blood Urea Nitrogen 48.0 mg/dL (8-24); CO2, Blood 31.0 mmol/L (21-32); Calcium, Blood 7.2 mg/dL (8.5-10.1); Chloride, Blood 104.0 mmol/L (98-108); Creatinine, Blood 3.31 mg/dL (0.40-1.00); Globulin, Blood 2.0 g/dL (2.2-4.0); Glucose, Blood 109.0 mg/dL (70-99); Phosphorus, Blood 3.4 mg/dL (2.5-4.9); Potassium, Blood 4.4 mmol/L (3.5-5.5); Sodium, Blood 138.0 mmol/L (136-145); Total Protein, Blood 4.4 g/dL (6.4-8.2)
--- NOTE | 2024-11-29 12:35 | NUR ---
CARE NOTE THIS RN PLACED CALL TO PT'S SISTER DHEERAJ NICHOLSON TO RETURN CALL/PROVIDE UPDATE AT APPROX. 1235 W/ NO ANSWER. THIS RN LET PT KNOW.
[2024-11-29] MEDS ORDERED: Vancomycin HCL 250 MG/5 ML 5ML Oral Syringe PT SCH (13:30)
--- NOTE | 2024-11-29 16:44 | NUR ---
CHANGE IN CREDIT COLLECTION ASSOCIATE PER FAMILY REQUEST. SEEN BY DR. ROD THIS MORNING. REVIEWED CHART.
[2024-11-29] MEDS ORDERED: Heparin Sodium 1000 Units/ML 10ML MDV ONE ×2 (16:47→17:19)
[2024-11-29] MEDS ORDERED: NS 250 ML IV ONE (16:47)
--- NOTE | 2024-11-29 16:54 | NUR ---
SHIFT SUMMARY PT HAS BEEN ALERT AND ORIENTED TO SELF, PLACE, SITUATION, MONTH/YEAR. SHE ANSWERS QUESTIONS APPROPRIATELY AND HAS BEEN ABLE TO MAKE HER NEEDS KNOWN. SHE HAS GOTTEN UP TO RECLINER CHAIR AND BEDSIDE COMMODE DURING SHIFT. VSS, SPO2 MAINTAINED >95% VIA RA-1L NC, SHE DENIES FEELING SOB. HR AND BP STABLE. SHE HAS DENIED FEELINGS OF CHEST PAIN/PRESSURE, LIGHTHEADEDNESS/DIZZINESS WELL NAUSEA/VOMITTING. JOSR IN PLACE AND SECURE, TF HAS BEEN OFF DURING SHIFT DUE TO PERMA CATH PLACEMENT PROCEDURE, PT LEFT FOR PERMA CATH PROCEDURE AT APPROX. 1710. WILL CONTINUE TO MONITOR AND REPORT TO ONCOMING RN.
[2024-11-29] MEDS ORDERED: Midazolam HCl 1MG / ML 2ML Vial ONE (17:19)
[2024-11-29] MEDS ORDERED: FentaNYL Citrate 50 MCG/ML 2 ML Injection ONE (17:19)
[2024-11-29] MEDS ORDERED: NS 1,000 ML IV ONE (17:20)
[2024-11-30] VITALS (14 sets, daily range): BP systolic 96–139; BP diastolic 50–79
--- NOTE | 2024-11-30 04:08 | NUR ---
transfer of care pt alert, oriented to self, place, situation, year. she is confused at times but conversates appropriately. she is able to express her needs, calls appropriately. hr in the 70,s, sr, she denies cp/pressure, numb/tingling, sbp stable. o2 >92% on 1-2l via nc. she has tube feedings infusing at 25ml/hr, tolerating well. pt tolerating water small sips at a time. pt medical status. room available on surgical floor. pt transfered to surgical via bed with this rn and pct. report given to rn at bedside.
[2024-11-30 05:40] LABS: QUANTIFERON MITOGEN MINUS NIL 9.91 IU/mL; QUANTIFERON NIL 0.09 IU/mL; QUANTIFERON PLUS TB1 MINUS NIL 0.00 IU/mL (<=0.34); QUANTIFERON PLUS TB2 MINUS NIL 0.03 IU/mL (<=0.34)
[2024-11-30 05:41] LABS: BASOPHILS ABSOLUTE AUTO 0.12 K/mm3 (0.00-0.23); BASOPHILS PERCENT AUTO 1 % (0-2); EOSINOPHILS ABSOLUTE AUTO 0.37 K/mm3 (0.00-0.68); EOSINOPHILS PERCENT AUTO 2 % (0-6); Hematocrit 36.7 % (33.0-51.0); Hemoglobin 11.9 g/dL (11.5-16.0); IMMATURE GRAN ABSOLUTE AUTO 1.01 K/mm3 (0.00-0.10); IMMATURE GRAN PERCENT AUTO 5 % (0-1); LYMPHOCYTES ABSOLUTE AUTO 1.67 K/mm3 (0.84-5.20); LYMPHOCYTES PERCENT AUTO 9 % (21-46); MONOCYTES ABSOLUTE AUTO 2.02 K/mm3 (0.16-1.47); MONOCYTES PERCENT AUTO 10 % (4-13); Mean Corpuscular HGB Conc 32.4 g/dL (31.5-36.5); Mean Corpuscular Volume 86 fL (80-100); NEUTROPHILS ABSOLUTE AUTO 14.35 K/mm3 (1.96-9.15); NEUTROPHILS PERCENT AUTO 74 % (41-73); NRBC ABSOLUTE 0.00 K/mm3 (0.00-0.02); NRBC Auto 0.0 /100 WBC (0.0-0.2); Platelet Count 95 K/mm3 (150-400); RDW Coefficient Variation 16.4 % (11.7-14.2); RDW Standard Deviation 49.1 fL (35.1-46.3)
[2024-11-30 06:20] LABS: Albumin, Blood 2.5 g/dL (3.4-5.0); Anion Gap 11 mmol/L (3-11); Blood Urea Nitrogen 65 mg/dL (8-24); CO2, Blood 28 mmol/L (21-32); Calcium, Blood 7.2 mg/dL (8.5-10.1); Chloride, Blood 103 mmol/L (98-108); Creatinine, Blood 4.53 mg/dL (0.40-1.00); Glucose, Blood 133 mg/dL (70-99); Magnesium, Blood 2.3 mg/dL (1.6-2.4); Phosphorus, Blood 4.1 mg/dL (2.5-4.9); Potassium, Blood 4.5 mmol/L (3.5-5.5); Sodium, Blood 137 mmol/L (136-145)
[2024-11-30 07:21] LABS: BAND PERCENT MAN 2 % (0-8); BASOPHILS ABSOLUTE MAN 0.00 K/mm3 (0.00-0.23); BASOPHILS PERCENT MAN 0 % (0-2); EOSINOPHILS ABSOLUTE MAN 0.39 K/mm3 (0.00-0.68); EOSINOPHILS PERCENT MAN 2 % (0-6); LYMPHOCYTES ABSOLUTE MAN 1.36 K/mm3 (0.84-5.20); LYMPHOCYTES PERCENT MAN 7 % (21-46); METAMYELOCYTE ABSOLUTE MAN 0.19 K/mm3 (0.00-0.00); METAMYELOCYTE PERCENT MAN 1 % (0-0); MONOCYTES ABSOLUTE MAN 1.36 K/mm3 (0.16-1.47); MONOCYTES PERCENT MAN 7 % (4-13); MYELOCYTE ABSOLUTE MAN 0.19 K/mm3 (0.00-0.00); MYELOCYTE PERCENT MAN 1 % (0-0); NEUTROPHILS ABSOLUTE MAN 16.02 K/mm3 (1.96-9.15); SEG NEUTROPHILS PERCENT MAN 80 % (41-73)
--- NOTE | 2024-11-30 17:14 | NUR ---
SHIFT SUMMARY PATIENT IS AOX3-4 FORGETFUL AT TIMES. HAD DIALYSIS THIS AFTERNOON. 1.5L TAKEN OFF. NO VOID FOR THIS SHIFT, THERE IS A 24HR URINE CATCH ORDER. MULTIPLE SOFT LOOSE STOOLS. WORKED WITH PT AND OT TODAY UP WITH 1-2 ASSIST AND GB, FWW. DIET ORDERED PER SPEECH THERAPY. ABLE TO EAT SOFT DIET. TUBE FEED UP TO 45ML/HR. DIETIAN IN TO SEE PATIENT HOPEFUL FOR MORE PO INTAKE. PATIENT HAS PRESSURE ULCER TO RIGHT HIP MEPILEX PLACED TODAY RED AND BLANCHABLE. RIGHT ELBOW WITH PRESSURE SORE REDNESS AND OPEN. MEPILEX IS PLACED TODAY. REPOSITIONED WITH PILLOWS. PATIENT IS SLEEPY AFTER HD. ABLE TO MAKE NEEDS KNOWN. CALL LIGHT IN REACH.
--- NOTE | 2024-11-30 23:02 | NUR ---
TRANSFER PT TRANSFER TO RM 329 FROM SURG 231. AOX3, MILDLY FORGETFUL. VSS. DENIES N/V OR DYSPNEA. SPO2 >90% ON RA. RT REMOVED NC, GIVING SCHEDULED BREATHING TX. REPORTS LOW BACK PAIN, MEDICATED 1x W/25MCG IV FENTANYL & REPOSITIONED, PT REPORTS MILD RELIEF. DOBHOFF FEED TO 50ML/HR CONTINUOUS. PT TOLERATING SIPS OF WATER. PT HAD 2 LOOSE STOOLS THIS SHIFT & MULTIPLE ON DAYS PER REPORT. NO URINE ABLE TO BE COLLECTED YET FOR 24HR URINE, PT HAS ONLY VOIDED 1x ON DAY SHIFT & IT WAS CONTAMINATED W/FECES PER REPORT. PT ABLE TO SWALLOW MEDS WHOLE 1 @TIME. GAVE REPORT TO MEDICAL NURSE TO ASSUME CARE OF PT.
[2024-12-01] MEDS ORDERED: MetroNIDAZOLE 500MG/NS 100 ml 100 ML IV SCH
[2024-12-01 03:19] VITALS: BP 127/67
[2024-12-01 07:37] VITALS: BP 134/75
[2024-12-01 10:36] LABS: BASOPHILS ABSOLUTE AUTO 0.14 K/mm3 (0.00-0.23); BASOPHILS PERCENT AUTO 1 % (0-2); EOSINOPHILS ABSOLUTE AUTO 0.45 K/mm3 (0.00-0.68); EOSINOPHILS PERCENT AUTO 2 % (0-6); Hematocrit 35.3 % (33.0-51.0); Hemoglobin 11.4 g/dL (11.5-16.0); IMMATURE GRAN ABSOLUTE AUTO 1.27 K/mm3 (0.00-0.10); IMMATURE GRAN PERCENT AUTO 5 % (0-1); LYMPHOCYTES ABSOLUTE AUTO 2.14 K/mm3 (0.84-5.20); LYMPHOCYTES PERCENT AUTO 8 % (21-46); MONOCYTES ABSOLUTE AUTO 2.23 K/mm3 (0.16-1.47); MONOCYTES PERCENT AUTO 8 % (4-13); Mean Corpuscular HGB Conc 32.3 g/dL (31.5-36.5); Mean Corpuscular Volume 87 fL (80-100); NEUTROPHILS ABSOLUTE AUTO 22.04 K/mm3 (1.96-9.15); NEUTROPHILS PERCENT AUTO 78 % (41-73); NRBC ABSOLUTE 0.00 K/mm3 (0.00-0.02); NRBC Auto 0.0 /100 WBC (0.0-0.2); Platelet Count 95 K/mm3 (150-400); RDW Coefficient Variation 16.4 % (11.7-14.2); RDW Standard Deviation 50.3 fL (35.1-46.3)
[2024-12-01 10:49] LABS: Magnesium, Blood 2.2 mg/dL (1.6-2.4)
[2024-12-01 10:50] LABS: Alanine Aminotransfer (ALT/SGP 744.0 U/L (12-78); Albumin, Blood 2.0 g/dL (3.4-5.0); Albumin/Globulin Ratio 0.8 (0.8-1.8); Anion Gap 9.0 mmol/L (3-11); Aspartate Aminotrans (AST/SGOT 169.0 U/L (12-37); Bilirubin, Direct 0.3 mg/dL (0.0-0.3); Bilirubin, Indirect 0.3 mg/dL (0.1-0.7); Bilirubin, Total 0.6 mg/dL (0.1-1.0); Blood Urea Nitrogen 66.0 mg/dL (8-24); CO2, Blood 30.0 mmol/L (21-32); Calcium, Blood 7.3 mg/dL (8.5-10.1); Chloride, Blood 103.0 mmol/L (98-108); Creatinine, Blood 4.62 mg/dL (0.40-1.00); Globulin, Blood 2.4 g/dL (2.2-4.0); Glucose, Blood 130.0 mg/dL (70-99); Phosphorus, Blood 2.7 mg/dL (2.5-4.9); Potassium, Blood 3.9 mmol/L (3.5-5.5); Sodium, Blood 138.0 mmol/L (136-145); Total Protein, Blood 4.4 g/dL (6.4-8.2)
[2024-12-01] MEDS ORDERED: Diazepam 5 MG / ML 2ML SYR IV ONE (12:05)
--- NOTE | 2024-12-01 12:33 | NUR ---
NOTE PT TRANSFERED TO [facility] TO BE TRANSPORTED TO MRI. BREAK RN GOT VALIUM ORDERED FOR ANXIETY AND GIVEN. TUBE FEEDING WAS STOPPED AND FLUSHED ONE HR AGO. MRI NOTIFIED PT HAS DOBHOFF.
[2024-12-01 13:10] VITALS: BP 118/53
--- NOTE | 2024-12-01 13:46 | NUR ---
NOTE PT BACK FROM MRI. TUBE FEEDS FLUSHED AND NOW BACK TO CONTINUOUS. CALLED PHARMACY, [facility] NOT ON FLOOR. PHARMACY STATED WILL SEND UP, CAN GIVE NOW
[2024-12-01 14:45] LABS: HEPATITIS B SURFACE ANTIBODY 49.63 IU/L
[2024-12-01 16:09] VITALS: BP 125/60
[2024-12-01 17:43] VITALS: BP 125/66
--- NOTE | 2024-12-01 18:28 | NUR ---
SHIFT SUMMARY PT A&OX3. PT KNOWS YEAR AND MONTH JUST NOT DAY. PT ADMITTED DUE TO SEPTIC SHOCK. PT REPORTS CHRONIC BACK PAIN, PAIN MANAGED PER EMAR. PT WORKED WITH PHYSICAL THERAPY TODAY AND IS A 1 ASSIST TO BSC. PT HAS LITTLE URINE OUTPUT. PT HAD MRI TODAY, RESULTS REPORTED TO DR. PULLIAM. PT HAS POOR PO INTAKE. PT ENCOURAGED TO HAVE ORAL INTAKE. ORAL CARE COMPLETED. PT TUBE FEEDINGS UPDATED, PT NOW GETTING JEVITY 1.2 WITH Q6 80ML FLUSH. PT IN BED, BED IN LOWEST POSITION HOB ELEVATED. CALL LIGHT IN REACH. PT GETTING IV ANTIBIOTIC AND PER SYRINGE.
[2024-12-01 19:38] VITALS: BP 125/68
[2024-12-01] MEDS ORDERED: Insulin Glargine-Yfgn 100 Unit/mL 3 ML SYR SC ONE (22:50)
[2024-12-02] VITALS (16 sets, daily range): BP systolic 94–156; BP diastolic 61–92
[2024-12-02 05:27] LABS: EOSINOPHILS ABSOLUTE AUTO 0.44 K/mm3 (0.00-0.68); EOSINOPHILS PERCENT AUTO 1 % (0-6); Hematocrit 36.2 % (33.0-51.0); Hemoglobin 11.8 g/dL (11.5-16.0); IMMATURE GRAN ABSOLUTE AUTO 1.32 K/mm3 (0.00-0.10); IMMATURE GRAN PERCENT AUTO 4 % (0-1); LYMPHOCYTES ABSOLUTE AUTO 2.46 K/mm3 (0.84-5.20); LYMPHOCYTES PERCENT AUTO 7 % (21-46); MONOCYTES ABSOLUTE AUTO 2.62 K/mm3 (0.16-1.47); MONOCYTES PERCENT AUTO 7 % (4-13); Mean Corpuscular HGB Conc 32.6 g/dL (31.5-36.5); Mean Corpuscular Volume 87 fL (80-100); NEUTROPHILS ABSOLUTE AUTO 29.15 K/mm3 (1.96-9.15); NEUTROPHILS PERCENT AUTO 81 % (41-73); NRBC ABSOLUTE 0.00 K/mm3 (0.00-0.02); NRBC Auto 0.0 /100 WBC (0.0-0.2); Platelet Count 148 K/mm3 (150-400); RDW Coefficient Variation 16.6 % (11.7-14.2); RDW Standard Deviation 49.9 fL (35.1-46.3)
[2024-12-02 05:28] LABS: BASOPHILS ABSOLUTE AUTO 0.02 K/mm3 (0.00-0.23); BASOPHILS PERCENT AUTO 0 % (0-2)
[2024-12-02 05:50] LABS: Albumin, Blood 2.0 g/dL (3.4-5.0); Anion Gap 10 mmol/L (3-11); Blood Urea Nitrogen 80 mg/dL (8-24); CO2, Blood 27 mmol/L (21-32); Calcium, Blood 7.4 mg/dL (8.5-10.1); Chloride, Blood 102 mmol/L (98-108); Creatinine, Blood 5.45 mg/dL (0.40-1.00); Glucose, Blood 127 mg/dL (70-99); Magnesium, Blood 2.2 mg/dL (1.6-2.4); Phosphorus, Blood 3.5 mg/dL (2.5-4.9); Potassium, Blood 4.6 mmol/L (3.5-5.5); Sodium, Blood 134 mmol/L (136-145)
--- NOTE | 2024-12-02 07:31 | NUR ---
Shift Summary AOx3-4. 2p stand pivot to bedside commode. Medicated for 01/30 abdominal cramps/back ache/generalized all-over pain twice w/ prn fentanyl, not so effective. Reassessed pain rating, it was an 12/30. Calling appropriately for needs. TF running continuous at goal rate of 30mLs/hour with q6 hour 80mL water flushes. Takes PO meds whole 1x with water. Dressing to right elbow changed tonight. Report given to day RNEdna.
--- NOTE | 2024-12-02 07:38 | NUR ---
NOTE PT WBC INCREASED. CALLED DR. PULLIAM TO NOTIFY PT REPORTS PAIN AND STILL REPORTS INCREASED PAIN POST FENT. NOTIFIED DR. PULLIAM ABOUT LABS. REPORTED PT STATES "JUST NOT FEELING WELL."
--- NOTE | 2024-12-02 08:57 | NUR ---
NOTE NATURE PHOTOGRAPHER REPORTED GIVE MIDODRINE. "OK FOR ALL MEDS". THIS RN GAVE AM MEDS. ANTIBIOTIC INFUSING, TUBE FEEDING CONTINUOUS. PT TRANSPORTED TO DIALYSIS VIA BED.
--- NOTE | 2024-12-02 14:57 | NUR ---
PATIENT HAS SHOWN IMPROVMENT IN MENTATION FROM MY LAST VISIT. SHE IS PLEASENT AND HAVING CONVERSATIONS. SHE IS MORE ALERT THAN MY PREVIOUS VISIT.
--- NOTE | 2024-12-02 19:31 | NUR ---
SHIFT SUMMARY PT A&OX4. PT ADMITTED DUE TO SEPTIC SHOCK, PT REPORTS CHRONIC BACK PAIN, PAIN MANAGED PER EMAR. PT IS A 1 ASSIST TO BSC, PT HAS LITTLE URINE OUTPUT. PT HAS POOR PO INTAKE. PT ENCOURAGED TO HAVE ORAL INTAKE, ORAL CARE COMPLETED. PT TUBE FEEDINGS UPDATED, PT NOW GETTING JEVITY 1.2 WITH Q6 80ML FLUSH. PT IN BED, BED IN LOWEST POSIITON HOB ELEVATED, CALL LIGHT IN REACH. PT GETTING IV ANTIBIOTIC PER SYRINGE.
[2024-12-03 03:40] VITALS: BP 123/64
[2024-12-03 03:54] LABS: ANTINUCLEAR AB (ANA),HEP-2,IGG <1:80 (<1:80)
--- NOTE | 2024-12-03 03:57 | NUR ---
SHIFT SUMMARY 64 YR F ADMITTED ON 11/22/24. FULL CODE. NO ACUTE CHANGES THIS SHIFT. PT IS ALERT AND ORIENTED AND ABLE TO MAKE HER NEEDS KNOWN. SHE CALLS APPROPRIATELY FOR ASSISTANCE TO BSC. THIS SHIFT SHE HAS HAD 2 SMALL BM'S AND VERY LITTLE URINE OUTPUT. JEVITY RUNNING CONTINUOUSLY @ 30ML/HR. PT C/O 10/10 BACK PAIN AND GIVEN FENTANYL PER EMAR. PERHAPS A LONGER ACTING PAIN MED WOULD BE MORE APPROPRIATE? BED IN LOW POSITION AND CALL LIGHT IN REACH.
[2024-12-03 05:55] LABS: BASOPHILS ABSOLUTE AUTO 0.09 K/mm3 (0.00-0.23); BASOPHILS PERCENT AUTO 0 % (0-2); EOSINOPHILS ABSOLUTE AUTO 0.22 K/mm3 (0.00-0.68); EOSINOPHILS PERCENT AUTO 1 % (0-6); Hematocrit 32.5 % (33.0-51.0); Hemoglobin 10.7 g/dL (11.5-16.0); IMMATURE GRAN ABSOLUTE AUTO 0.84 K/mm3 (0.00-0.10); IMMATURE GRAN PERCENT AUTO 3 % (0-1); LYMPHOCYTES ABSOLUTE AUTO 2.47 K/mm3 (0.84-5.20); LYMPHOCYTES PERCENT AUTO 8 % (21-46); MONOCYTES ABSOLUTE AUTO 2.72 K/mm3 (0.16-1.47); MONOCYTES PERCENT AUTO 9 % (4-13); Mean Corpuscular HGB Conc 32.9 g/dL (31.5-36.5); Mean Corpuscular Volume 87 fL (80-100); NEUTROPHILS ABSOLUTE AUTO 23.97 K/mm3 (1.96-9.15); NEUTROPHILS PERCENT AUTO 79 % (41-73); NRBC ABSOLUTE 0.00 K/mm3 (0.00-0.02); NRBC Auto 0.0 /100 WBC (0.0-0.2); Platelet Count 170 K/mm3 (150-400); RDW Coefficient Variation 16.5 % (11.7-14.2); RDW Standard Deviation 50.1 fL (35.1-46.3)
[2024-12-03 06:15] LABS: Alanine Aminotransfer (ALT/SGP 463.0 U/L (12-78); Albumin, Blood 1.8 g/dL (3.4-5.0); Albumin/Globulin Ratio 0.6 (0.8-1.8); Anion Gap 9.0 mmol/L (3-11); Aspartate Aminotrans (AST/SGOT 105.0 U/L (12-37); Bilirubin, Direct 0.2 mg/dL (0.0-0.3); Bilirubin, Indirect 0.5 mg/dL (0.1-0.7); Bilirubin, Total 0.7 mg/dL (0.1-1.0); Blood Urea Nitrogen 57.0 mg/dL (8-24); CO2, Blood 31.0 mmol/L (21-32); Calcium, Blood 7.2 mg/dL (8.5-10.1); Chloride, Blood 101.0 mmol/L (98-108); Creatinine, Blood 4.76 mg/dL (0.40-1.00); Globulin, Blood 2.8 g/dL (2.2-4.0); Glucose, Blood 147.0 mg/dL (70-99); Magnesium, Blood 2.1 mg/dL (1.6-2.4); Phosphorus, Blood 3.9 mg/dL (2.5-4.9); Potassium, Blood 4.4 mmol/L (3.5-5.5); Sodium, Blood 137.0 mmol/L (136-145); Total Protein, Blood 4.6 g/dL (6.4-8.2)
[2024-12-03 07:16] VITALS: BP 122/60
[2024-12-03 12:37] LABS: HCV QNT BY NAAT (IU/ML) Not Detected; HCV QNT BY NAAT (LOG IU/ML) Not Detected; HCV QNT BY NAAT INTERP Not Detected (Not Detected)
[2024-12-03 13:15] VITALS: BP 131/77
[2024-12-03] MEDS ORDERED: Protein Supplement 30 ML UD PT SCH (16:30)
[2024-12-03 16:56] VITALS: BP 128/68
--- NOTE | 2024-12-03 18:47 | NUR ---
SHIFT SUMMARY: PT A&O X4. PLEASANT AND COOPERATIVE WITH CARE. TUBE FEEDING FOR DAY SHIFT STOPPED THIS SHIFT. RUBBISH COLLECTION SUPERVISOR FEEDINGS c FLUSHES ORDERED TO START AT 1999. PT STILL ONLY ABLE TO EAT SMALL AMOUNTS OF SOLIDS. PT C/O 8-01/30 PAIN IN BACK AND BUTTOCK. NEW DRESSING PLACED ON BACK OF R. THIGH UNDER BUTTOCK. PT ABLE TO INTAKE FLUIDS W/O N/V. ONE PERSON ASSIST TO CHAIR. ENCOURAGED PT TO STAY UP FOR MEALS BUT UNINTERESTED AND STATED SHE WAS TOO PAINFUL. CALL LIGHT IN REACH. BED IN LOWEST POSITION.
[2024-12-03 19:12] VITALS: BP 138/64
[2024-12-03 23:44] VITALS: BP 149/76
[2024-12-04] VITALS (17 sets, daily range): BP systolic 59–146; BP diastolic 26–82
[2024-12-04 05:17] LABS: BASOPHILS ABSOLUTE AUTO 0.07 K/mm3 (0.00-0.23); BASOPHILS PERCENT AUTO 0 % (0-2); EOSINOPHILS ABSOLUTE AUTO 0.24 K/mm3 (0.00-0.68); EOSINOPHILS PERCENT AUTO 1 % (0-6); Hematocrit 31.5 % (33.0-51.0); Hemoglobin 10.3 g/dL (11.5-16.0); IMMATURE GRAN ABSOLUTE AUTO 0.48 K/mm3 (0.00-0.10); IMMATURE GRAN PERCENT AUTO 2 % (0-1); LYMPHOCYTES ABSOLUTE AUTO 2.26 K/mm3 (0.84-5.20); LYMPHOCYTES PERCENT AUTO 9 % (21-46); MONOCYTES ABSOLUTE AUTO 2.78 K/mm3 (0.16-1.47); MONOCYTES PERCENT AUTO 11 % (4-13); Mean Corpuscular HGB Conc 32.7 g/dL (31.5-36.5); Mean Corpuscular Volume 87 fL (80-100); NEUTROPHILS ABSOLUTE AUTO 19.37 K/mm3 (1.96-9.15); NEUTROPHILS PERCENT AUTO 77 % (41-73); NRBC ABSOLUTE 0.00 K/mm3 (0.00-0.02); NRBC Auto 0.0 /100 WBC (0.0-0.2); Platelet Count 224 K/mm3 (150-400); RDW Coefficient Variation 16.7 % (11.7-14.2); RDW Standard Deviation 50.1 fL (35.1-46.3)
--- NOTE | 2024-12-04 05:31 | NUR ---
SHIFT SUMMARY PT HAS BEEN RESTING IN BED OVERNIGHT. SHE HAS BEEN AOX4, WITH EPISODES OF FORGETFULNESS. SHE HAS CALLED APPROPRIATELY OVERNIGHT. SHE HAS BEEN 1-2PA TO BSC, SEMI CONTINENT OF BMS, HAVING MULT LOOSE BMS OVERNIGHT. SHE IS IN ENTERIC PRECAUTIONS FOR C DIFF. PT HAS DOBHOFF TUBE WITH NIGHTLY FEEDINGS THAT STARTED 2000 AND END 0600 FOR TOT VOL OF 720. PT HAS HAD NO COMPLAINTS W/ TF. PT HAS LOW MOTIVATION FOR PO INTAKE, HAS NOT WANTED TO MOVE, STATES IT HAS BEEN PAINFUL FOR HER. NO ACUTE EVENTS OVERNIGHT.
[2024-12-04 11:23] LABS: Alanine Aminotransfer (ALT/SGP 355.0 U/L (12-78); Albumin, Blood 1.7 g/dL (3.4-5.0); Albumin/Globulin Ratio 0.6 (0.8-1.8); Anion Gap 11.0 mmol/L (3-11); Aspartate Aminotrans (AST/SGOT 89.0 U/L (12-37); Bilirubin, Total 0.6 mg/dL (0.1-1.0); Blood Urea Nitrogen 74.0 mg/dL (8-24); CO2, Blood 29.0 mmol/L (21-32); Calcium, Blood 7.7 mg/dL (8.5-10.1); Chloride, Blood 102.0 mmol/L (98-108); Creatinine, Blood 5.86 mg/dL (0.40-1.00); Globulin, Blood 2.7 g/dL (2.2-4.0); Glucose, Blood 121.0 mg/dL (70-99); Magnesium, Blood 1.9 mg/dL (1.6-2.4); Phosphorus, Blood 4.6 mg/dL (2.5-4.9); Potassium, Blood 4.6 mmol/L (3.5-5.5); Sodium, Blood 137.0 mmol/L (136-145); Total Protein, Blood 4.4 g/dL (6.4-8.2)
--- NOTE | 2024-12-04 16:51 | NUR ---
SHIFT SUMMARY PT HAD HD DIALYSIS TODAY. NO URINATION NOTED TODAY, SO UNABLE TO OBTAIN A SAMPLE OF URINE. PT UP TO BSC WITH 2P ASSIST MULTIPLE TIMES TODAY. LOOSE STOOLS. CONTINENT OF STOOL HOWEVER. IV INTACT, REDRESSED TODAY. SISTER, ROBERTO IN TO SEE THE PATIENT. UPDATED ON PT CONDITION, REPORTED THAT PT NORMALLY TAKES LYRICA AT HOME AND WAS ASKING IF THE PT HAS BEEN GETTING THIS MED. DR. MOROCHO STATED IT WAS STOPPED DUE TO ALTERED MENTAL STATUS ON ADMIT, BUT THAT IT CAN BE RESTARTED SLOWLY. ORDER FOR 50MG AT BEDTIME ORDERED. PT AND SISTER PLEASED WITH THIS. PT WORKED WITH OCCUPATIONAL THERAPY TODAY. VERY POOR APPETITIE. ENCOURAGING MOVEMENT IN BED AND FOR PO INTAKE OF BOTH FLUIDS AND SOLIDS. NO OTHER ACUTE CHANGES IN ASSESSMENT AT THIS TIME. VS REVIEWED. CALL LIGHT IN REACH. DENIES OTHER NEEDS AT THIS TIME.
[2024-12-04 21:04] LABS: GBM, IGG MULTIPLEX BEAD ASSAY 0 AU/mL (0-19); MYELOPEROXIDASE (MPO) AB,IGG 0 AU/mL (0-19); SERINE PROTEINASE 3 PR3 AB,IGG 0 AU/mL (0-19)
[2024-12-05] VITALS (13 sets, daily range): BP systolic 100–154; BP diastolic 63–94
--- NOTE | 2024-12-05 03:59 | NUR ---
SHIFT SUMMARY: PT RESTLESS FOR THE FIRST HALF OF THE SHIFT. MEDICATED PER EMAR FOR PAIN. PT HAD 2 LOOSE BMS THIS SHIFT AND WAS A 1-2 PER AST TO BSC. BED ALARM ON AFTER ONE IMPULSIVE EVENT OF GETTING UP ON THEIR OWN TO THE BSC. PT HAS TUBE FEEDING GOING AT BEDSIDE.
[2024-12-05 06:21] LABS: BASOPHILS ABSOLUTE AUTO 0.05 K/mm3 (0.00-0.23); BASOPHILS PERCENT AUTO 0 % (0-2); EOSINOPHILS ABSOLUTE AUTO 0.20 K/mm3 (0.00-0.68); EOSINOPHILS PERCENT AUTO 1 % (0-6); Hematocrit 28.6 % (33.0-51.0); Hemoglobin 9.5 g/dL (11.5-16.0); IMMATURE GRAN ABSOLUTE AUTO 0.22 K/mm3 (0.00-0.10); IMMATURE GRAN PERCENT AUTO 1 % (0-1); LYMPHOCYTES ABSOLUTE AUTO 2.43 K/mm3 (0.84-5.20); LYMPHOCYTES PERCENT AUTO 13 % (21-46); MONOCYTES ABSOLUTE AUTO 2.63 K/mm3 (0.16-1.47); MONOCYTES PERCENT AUTO 14 % (4-13); Mean Corpuscular HGB Conc 33.2 g/dL (31.5-36.5); Mean Corpuscular Volume 87 fL (80-100); NEUTROPHILS ABSOLUTE AUTO 13.76 K/mm3 (1.96-9.15); NEUTROPHILS PERCENT AUTO 71 % (41-73); NRBC ABSOLUTE 0.00 K/mm3 (0.00-0.02); NRBC Auto 0.0 /100 WBC (0.0-0.2); Platelet Count 212 K/mm3 (150-400); RDW Coefficient Variation 16.8 % (11.7-14.2); RDW Standard Deviation 49.8 fL (35.1-46.3)
[2024-12-05 06:43] LABS: Magnesium, Blood 2.0 mg/dL (1.6-2.4)
[2024-12-05 07:14] LABS: Alanine Aminotransfer (ALT/SGP 267.0 U/L (12-78); Albumin, Blood 1.7 g/dL (3.4-5.0); Albumin/Globulin Ratio 0.7 (0.8-1.8); Anion Gap 7.0 mmol/L (3-11); Aspartate Aminotrans (AST/SGOT 65.0 U/L (12-37); Bilirubin, Total 0.5 mg/dL (0.1-1.0); Blood Urea Nitrogen 55.0 mg/dL (8-24); CO2, Blood 34.0 mmol/L (21-32); Calcium, Blood 7.6 mg/dL (8.5-10.1); Chloride, Blood 100.0 mmol/L (98-108); Creatinine, Blood 4.71 mg/dL (0.40-1.00); Globulin, Blood 2.6 g/dL (2.2-4.0); Glucose, Blood 114.0 mg/dL (70-99); Phosphorus, Blood 4.0 mg/dL (2.5-4.9); Potassium, Blood 3.9 mmol/L (3.5-5.5); Sodium, Blood 137.0 mmol/L (136-145); Total Protein, Blood 4.3 g/dL (6.4-8.2)
[2024-12-05] MEDS ORDERED: Darbepoetin Alfa in Polysorbat 25 MCG/0.42 ML Syringe SC SCH (16:00)
--- NOTE | 2024-12-05 17:17 | NUR ---
SHIFT SUMMARY PT AOX4, FORGETFUL AND ANXIOUS AT TIMES. DIALYSIS TODAY. MEDICATED FOR PAIN PER THE EMAR. PER DR. MOROCHO, TUBE FEEDINGS TO BE HELD NOC SHIFT WITH THE HOPES OF INCREASING HER APPETITE. PT AWARE. REPOSITIONS SELF IN THE BED. UP TO THE BSC WIH A 1 ASSIST. PT IS CONTINENT. POSSIBLE SNF AT DISCHARGE. SISTER AT THE BS THIS SHIFT, UPDATED. CALL LIGHT WITHIN REACH, BED LOCKED AND IN THE LOWEST POSITION. WILL REPORT TO ONCOMING NURSE.
[2024-12-05 18:15] LABS: HBV CORE ANTIBODIES,TOTAL Negative (Negative)
[2024-12-06 02:36] VITALS: BP 127/70
--- NOTE | 2024-12-06 03:36 | NUR ---
SHIFT SUMMARY: PT IS AOX3-4. PT MEDICATED FOR PAIN AND ANXIEY PER EMAR. PT SLEEPING MOST OF THE SHIFT. PLEASENT AND COOPERATIVE WITH CARE. NO ACUTE CHANGES THIS SHIFT. PT IN ISOLATION FOR CDIFF. 1-2 PER AST TO BSC. BED IN LOWEST POSITION AND CALL LIGHT IN REACH.
[2024-12-06] MEDS ORDERED: Levodopa/Carbidopa 100 / 25 MG Tab PO SCH ×2 (04:45→09:00)
[2024-12-06 06:10] LABS: BASOPHILS ABSOLUTE AUTO 0.06 K/mm3 (0.00-0.23); BASOPHILS PERCENT AUTO 0 % (0-2); EOSINOPHILS ABSOLUTE AUTO 0.18 K/mm3 (0.00-0.68); EOSINOPHILS PERCENT AUTO 1 % (0-6); Hematocrit 32.2 % (33.0-51.0); Hemoglobin 10.5 g/dL (11.5-16.0); IMMATURE GRAN ABSOLUTE AUTO 0.14 K/mm3 (0.00-0.10); IMMATURE GRAN PERCENT AUTO 1 % (0-1); LYMPHOCYTES ABSOLUTE AUTO 2.01 K/mm3 (0.84-5.20); LYMPHOCYTES PERCENT AUTO 14 % (21-46); MONOCYTES ABSOLUTE AUTO 2.19 K/mm3 (0.16-1.47); MONOCYTES PERCENT AUTO 15 % (4-13); Mean Corpuscular HGB Conc 32.6 g/dL (31.5-36.5); Mean Corpuscular Volume 87 fL (80-100); NEUTROPHILS ABSOLUTE AUTO 10.35 K/mm3 (1.96-9.15); NEUTROPHILS PERCENT AUTO 69 % (41-73); NRBC ABSOLUTE 0.00 K/mm3 (0.00-0.02); NRBC Auto 0.0 /100 WBC (0.0-0.2); Platelet Count 228 K/mm3 (150-400); RDW Coefficient Variation 17.0 % (11.7-14.2); RDW Standard Deviation 51.8 fL (35.1-46.3)
[2024-12-06 06:29] LABS: Albumin, Blood 1.9 g/dL (3.4-5.0); Anion Gap 7 mmol/L (3-11); Blood Urea Nitrogen 42 mg/dL (8-24); CO2, Blood 33 mmol/L (21-32); Calcium, Blood 8.0 mg/dL (8.5-10.1); Chloride, Blood 100 mmol/L (98-108); Creatinine, Blood 4.45 mg/dL (0.40-1.00); Glucose, Blood 91 mg/dL (70-99); Magnesium, Blood 1.7 mg/dL (1.6-2.4); Phosphorus, Blood 4.0 mg/dL (2.5-4.9); Potassium, Blood 4.0 mmol/L (3.5-5.5); Sodium, Blood 136 mmol/L (136-145)
[2024-12-06 07:19] VITALS: BP 133/72
[2024-12-06] MEDS ORDERED: HYDROcodone 5-APAP 325 TAB PO PRN (11:45)
[2024-12-06 13:27] VITALS: BP 117/64
[2024-12-06 15:34] VITALS: BP 126/70
--- NOTE | 2024-12-06 17:32 | NUR ---
SHIFT SUMMARY PT AOX3-4, FEELING MUCH BETTER TODAY. UP TO THE CHAIR FOR LUNCH, 1 LOOSE BM THIS SHIFT. MEDICATED FOR PAIN WITH ORAL MEDS PER THE EMAR. PT CALLS AND MAKES HER NEEDS KNOWN, REPOSITIONS SELF IN BED. POSSIBLE DOBHOFF TUBE REMOVAL TOMORROW IN THE AM, PENDING APPETITE AND FOOD INTAKE THIS SHIFT. NO ACUTE EVENTS. CALL LIGHT WITHIN REACH, BED LOCKED AND IN THE LOWEST POSITION. WILL REPORT TO ONCOMING NURSE.
[2024-12-06 19:57] VITALS: BP 135/76
[2024-12-07] VITALS (17 sets, daily range): BP systolic 103–132; BP diastolic 44–73
[2024-12-07 06:25] LABS: BASOPHILS ABSOLUTE AUTO 0.06 K/mm3 (0.00-0.23); BASOPHILS PERCENT AUTO 0 % (0-2); EOSINOPHILS ABSOLUTE AUTO 0.15 K/mm3 (0.00-0.68); EOSINOPHILS PERCENT AUTO 1 % (0-6); Hematocrit 31.7 % (33.0-51.0); Hemoglobin 10.4 g/dL (11.5-16.0); IMMATURE GRAN ABSOLUTE AUTO 0.13 K/mm3 (0.00-0.10); IMMATURE GRAN PERCENT AUTO 1 % (0-1); LYMPHOCYTES ABSOLUTE AUTO 1.97 K/mm3 (0.84-5.20); LYMPHOCYTES PERCENT AUTO 14 % (21-46); MONOCYTES ABSOLUTE AUTO 2.07 K/mm3 (0.16-1.47); MONOCYTES PERCENT AUTO 15 % (4-13); Mean Corpuscular HGB Conc 32.8 g/dL (31.5-36.5); Mean Corpuscular Volume 89 fL (80-100); NEUTROPHILS ABSOLUTE AUTO 9.58 K/mm3 (1.96-9.15); NEUTROPHILS PERCENT AUTO 69 % (41-73); NRBC ABSOLUTE 0.00 K/mm3 (0.00-0.02); NRBC Auto 0.0 /100 WBC (0.0-0.2); Platelet Count 254 K/mm3 (150-400); RDW Coefficient Variation 17.2 % (11.7-14.2); RDW Standard Deviation 53.9 fL (35.1-46.3)
--- NOTE | 2024-12-07 06:42 | NUR ---
SHIFT SUMMARY PT A&Ox4 AND PLEASANT. C/O ABD PAIN AND MEDICATED PER EMAR WITH GOOD EFFECT. CONTINUING ORAL VANCOMYCIN Q 6HR. PT UP TO BSC. PT PRODUCING SOME URINE AND HAD TWO SMALL, SOFT BM's DURING THE NIGHT. -JOSR IN PLACE BUT HOLDING FEEDINGS PER DR ORDERS AT THIS TIME. CONTINUING Q6 BLOOD GLUCOSE CHECKS. VSS. BED IN LOWEST POSITION AND CALL LIGHT IN REACH.
[2024-12-07 06:47] LABS: Alanine Aminotransfer (ALT/SGP 44.0 U/L (12-78); Albumin, Blood 1.9 g/dL (3.4-5.0); Albumin/Globulin Ratio 0.6 (0.8-1.8); Anion Gap 11.0 mmol/L (3-11); Aspartate Aminotrans (AST/SGOT 52.0 U/L (12-37); Bilirubin, Total 0.5 mg/dL (0.1-1.0); Blood Urea Nitrogen 49.0 mg/dL (8-24); CO2, Blood 30.0 mmol/L (21-32); Calcium, Blood 7.9 mg/dL (8.5-10.1); Chloride, Blood 100.0 mmol/L (98-108); Creatinine, Blood 5.38 mg/dL (0.40-1.00); Globulin, Blood 3.2 g/dL (2.2-4.0); Glucose, Blood 92.0 mg/dL (70-99); Magnesium, Blood 2.0 mg/dL (1.6-2.4); Phosphorus, Blood 5.7 mg/dL (2.5-4.9); Potassium, Blood 4.0 mmol/L (3.5-5.5); Sodium, Blood 137.0 mmol/L (136-145); Total Protein, Blood 5.1 g/dL (6.4-8.2)
[2024-12-07] MEDS ORDERED: BISA10S PR (13:37)
[2024-12-07] MEDS ORDERED: Norco 5-325 Ta1 EACH PO (13:38)
[2024-12-07] MEDS ORDERED: MIDO5 PO (13:38)
[2024-12-07] MEDS ORDERED: NICO21TP TOP (13:39)
[2024-12-07] MEDS ORDERED: PANT40 PO (13:40)
[2024-12-07] MEDS ORDERED: PREG50 PO (13:40)
[2024-12-07] MEDS ORDERED: Promod946 ML PO (13:42)
[2024-12-07] MEDS ORDERED: Vancocin HCl125 MG PO (13:43)
[2024-12-07] MEDS ORDERED: ALBU2.5V5 INH (13:44)
--- NOTE | 2024-12-07 16:19 | NUR ---
SHIFT SUMMARY/DC SUMMARY PHYSICIAN REQUESTED THAT NG TUBE BE DC THIS SHIFT. NG TUBE WAS REMOVED AND PT TOLERATED WELL. PT CONT TO BE ENCOURAGED TO EAT. PT NOTED TO HAVE DIALYSIS TODAY AND 1L WAS REMOVED. PT GOING TO DC TO [facility] TODAY. BRITTNY AT [facility] WAS GIVEN REPORT ON PT AND NOTIFIED THAT 3 HARD SCRIPS WHERE PLACED IN DC PACKET ALONG WITH PT PAPER WORK THAT WOULD NEED TO BE FILLED OUT AT [facility] TO [facility] CHAIR TIME AT [facility] ON 12/11/24 AT 1130. CALLED PT BROTHER YOANNA AND UPDATED HIM ON PT TRANSFERING OVER TO [facility] TODAY AROUND 1700.
== END 2024-12-07 17:00 | DRG 871 ==
LOC: ER 17:33 → ICUE 22:18 → SURS 22:18 → PCU 22:18 → ICUE 23:16 → PCU 11-26 18:16 → SURS 11-30 03:40 → MEDS 11-30 22:56 → ENPENDDIS 12-07 12:41 → MEDS 12-07 17:00
PROVIDERS: Emergency Medicine; Family Medicine; Hospitalist; Internal Medicine; Internal Medicine Nephrology; Student in an Organized Health Care Education/Training Program; ADMIT Family Medicine
PROC: 3E033XZ Introduction of Vasopressor into Peripheral Vein, Percutaneous Approach (ICD-10-PCS; 2024-11-22)
PROC: 5A09357 Assistance with Respiratory Ventilation, Less than 24 Consecutive Hours, Continuous Positive Airway Pressure (ICD-10-PCS; 2024-11-24)
PROC: 0T9B70Z Drainage of Bladder with Drainage Device, Via Natural or Artificial Opening (ICD-10-PCS; 2024-11-25)
PROC: 5A1D70Z Performance of Urinary Filtration, Intermittent, Less than 6 Hours Per Day (ICD-10-PCS; 2024-11-26)
PROC: 02HV33Z Insertion of Infusion Device into Superior Vena Cava, Percutaneous Approach (ICD-10-PCS; 2024-11-26)
PROC: B548ZZA Ultrasonography of Superior Vena Cava, Guidance (ICD-10-PCS; 2024-11-26)
PROC: 0DH67UZ Insertion of Feeding Device into Stomach, Via Natural or Artificial Opening (ICD-10-PCS; 2024-11-28)
PROC: 3E0G76Z Introduction of Nutritional Substance into Upper GI, Via Natural or Artificial Opening (ICD-10-PCS; 2024-11-28)
PROC: 3E03329 Introduction of Other Anti-infective into Peripheral Vein, Percutaneous Approach (ICD-10-PCS; principal; 2024-11-29)
PROC: 0JH63XZ Insertion of Tunneled Vascular Access Device into Chest Subcutaneous Tissue and Fascia, Percutaneous Approach (ICD-10-PCS; 2024-11-29)
PROC: 02HV33Z Insertion of Infusion Device into Superior Vena Cava, Percutaneous Approach (ICD-10-PCS; 2024-11-29)
PROC: B5181ZA Fluoroscopy of Superior Vena Cava using Low Osmolar Contrast, Guidance (ICD-10-PCS; 2024-11-29)
DX: A41.9 Sepsis, unspecified organism (principal); G92.8 Other toxic encephalopathy; J96.01 Acute respiratory failure with hypoxia; K72.00 Acute and subacute hepatic failure without coma; R65.21 Severe sepsis with septic shock; R57.1 Hypovolemic shock; J96.02 Acute respiratory failure with hypercapnia; N17.0 Acute kidney failure with tubular necrosis; J18.9 Pneumonia, unspecified organism; N18.6 End stage renal disease; E87.20 Acidosis, unspecified; E87.1 Hypo-osmolality and hyponatremia; A04.72 Enterocolitis due to Clostridium difficile, not specified as recurrent; D62 Acute posthemorrhagic anemia; M62.82 Rhabdomyolysis; D68.9 Coagulation defect, unspecified; I12.0 Hypertensive chronic kidney disease with stage 5 chronic kidney disease or end stage renal disease; J44.0 Chronic obstructive pulmonary disease with (acute) lower respiratory infection; F41.9 Anxiety disorder, unspecified; M54.2 Cervicalgia; G89.29 Other chronic pain; J44.9 Chronic obstructive pulmonary disease, unspecified; D69.6 Thrombocytopenia, unspecified; E16.2 Hypoglycemia, unspecified; R74.01 Elevation of levels of liver transaminase levels; G25.81 Restless legs syndrome; G62.9 Polyneuropathy, unspecified; F11.10 Opioid abuse, uncomplicated; F15.10 Other stimulant abuse, uncomplicated; F13.10 Sedative, hypnotic or anxiolytic abuse, uncomplicated; D63.1 Anemia in chronic kidney disease; E88.09 Other disorders of plasma-protein metabolism, not elsewhere classified; T68.XXXA Hypothermia, initial encounter; M62.81 Muscle weakness (generalized); F12.10 Cannabis abuse, uncomplicated; I45.81 Long QT syndrome; Z98.890 Other specified postprocedural states; Z87.891 Personal history of nicotine dependence; Z79.51 Long term (current) use of inhaled steroids; Z87.81 Personal history of (healed) traumatic fracture; Z79.899 Other long term (current) drug therapy; Z79.52 Long term (current) use of systemic steroids; Z79.2 Long term (current) use of antibiotics
CPT/HCPCS: 36415; 36556; 70450; 70551; 71045; 74018; 74176; 74177; 76937; 80048; 80053; 80069; 80074; 80076; 80320; 81001; 82140; 82248; 82270; 82533; 82550; 82803; 82947; 83516; 83605; 83735; 84100; 84145; 84439; 84443; 85014; 85018; 85025; 85610; 86039; 86334; 86480; 86704; 86850; 86900; 86901; 87040; 87324; 87340; 87507; 87522; 92610; 93005; 93010; 93971; 94640; 94660; 94664; 94760; 94762; 96361; 96365; 96366; 96368; 97110; 97110-CQ; 97116; 97161; 97165; 97530; 97530-CQ; 97535; 99152; 99153; 99291-25; A9270; C1750; C1751; C1752; C1769; C1894; J0696; J0881; J1630; J1644; J1720; J2250; J2405; J2470; J2543; J2597; J3010; J3360; J3430; J3475; J7030; J7040; J7050; J7060; J7120; J7512; Q9967